=== PATIENT | male | born 1955 | race Caucasian/White ===

== ENCOUNTER → 2024-03-30 | Outpatient (CLI) | payer MEDICARE, SELFPAY ==
[2024-03-30 13:16] LABS: PSA,Total - Annual Screen 0.74 ng/mL (0.00-4.00)
== END | disposition home or self-care (01) ==
PROVIDERS: PCP Student in an Organized Health Care Education/Training Program; Referring Provider Urology; Visit Provider Urology
DX: Z12.5 Encounter for screening for malignant neoplasm of prostate (principal)
CPT/HCPCS: 36415; 84153; G0103

== ENCOUNTER 2024-09-22 05:36 | Day surgery (SDC) | payer MEDICARE, SELFPAY ==
[2024-09-22] VITALS (14 sets, daily range): BP systolic 113–140; BP diastolic 64–86; PULSE 81–97; RESP 16–20; TEMP 36.3–36.8; O2SAT 87–97; BMI 34.1; BMI 34.5
--- OUTSIDE RECORDS SUMMARY | 2024-09-22 05:39 | XMS RPT_ITS | CCD ---
Author Organization [facility] Care Team Providers Care Jewel Bearing Driller Name Role Phone Unavailable Primary Care Provider UnavailJasper Diaz MD Primary Care Provider SALLY DIAZ Referring Unavailable SALLY DIAZ Attending Unavailable JASPER AGUILAR Primary Care Unavailable SALLY DIAZ Referring Unavailable SALLY DIAZ Attending Unavailable JASPER AGUILAR Primary Care Unavailable SALLY DIAZ Attending Unavailable SALLY DIAZ Referring Unavailable SALLY DIAZ Attending Unavailable JASPER AGUILAR Referring Unavailable JASPER AGUILAR Primary Care Unavailable JASPER AGUILAR MD Admitting Unavailable JASPER AGUILAR MD Attending Unavailable JASPER AGUILAR MD Primary Care Unavailable JASPER AGUILAR MD Admitting Unavailable JASPER AGUILAR MD Attending Unavailable JASPER AGUILAR MD Primary Care Unavailable JASPER AGUILAR MD Admitting Unavailable JASPER AGUILAR MD Attending Unavailable JASPER AGUILAR MD Primary Care Unavailable JOHNIE CRESPO Consulting Unavailable PROVIDER, UNKNOWN Consulting Unavailable PROVIDER, UNKNOWN Consulting Unavailable PROVIDER, UNKNOWN Consulting Unavailable JASPER AGUILAR MD Admitting Unavailable JASPER AGUILAR MD Attending Unavailable JASPER AGUILAR MD Primary Care Unavailable JASPER AGUILAR MD Admitting Unavailable JASPER AGUILAR MD Attending Unavailable JASPER AGUILAR MD Primary Care Unavailable JASPER AGUILAR MD Admitting Unavailable JASPER AGUILAR MD Attending Unavailable JASPER AGUILAR MD Primary Care Unavailable JASPER AGUILAR MD Consulting Unavailable PROVIDER, UNKNOWN Consulting Unavailable PROVIDER, UNKNOWN Consulting Unavailable LOUIS IRENE Admitting Unavailable LOUIS IRENE Attending Unavailable LOUIS IRENE Primary Care Unavailable JASPER AGUILAR MD Consulting Unavailable PROVIDER, UNKNOWN Consulting Unavailable PROVIDER, UNKNOWN Consulting Unavailable Allergies Allergy Classification Reported Allergen(s) Allergy Type Date of Onset Reaction(s) Facility (7 sources) traMADol Drug Allergy 2 Mental Status Change [facility] (1 source) traMADol Drug Allergy [facility] Repository Medications Current Medications Medication Drug Class(es) Dates Sig (Normalized) Sig (Original) acetaminophen 325 mg / HYDROcodone bitartrate 5 mg oral tablet (1 source) Opioid Agonist Start: 05-27-2022 End: 05-27-2022 take 1 tablet by mouth once HYDROcodone-acet aminophen (NORCO) 5-325 mg per tablet Indications: pain Take 1 tablet by mouth one time only for 1 dose. Take 90 minutes prior to MRI. Do not drive while taking medication Do not start before May 27, 2022. 1 tablet 0 05/27/2022 05/27/2022 Active Comment on above: Take 1 tablet by nando one time only for 1 dose. Take 90 minutes prior to MRI. Do not drive while taking medication Do not start before May 27, 2022. [id number] actuat albuterol 0.09 mg/actuat metered dose inhaler (3 sources) beta2-Adrenergic Agonist take 1 puff(s) by inhalation every six hours as needed Albuterol 108 (90 Base) MCG/ACT Aero Soln inhaler Inhale 1 puff every 6 hours as needed for Shortness of Breath. 0 Active diazePAM 5 mg oral tablet (3 sources) Benzodiazepine Start: 05-27-2022 End: 05-31-2022 diazePAM (VALIUM) 5 mg tablet Indications: pre MRI Take 1 tablet 60 minutes prior to MRI, may repeat 1 tablet right before MRI/during if needed. Do not start before May 27, 2022. 2 tablet 0 05/27/2022 05/31/2022 Active Comment on above: Take 1 tablet 60 min utes prior to MRI, may repeat 1 tablet right before MRI/during if needed. Do not start before May 27, 2022. DULoxetine 60 mg delayed release oral capsule (3 sources) Serotonin and Norepinephrine Reuptake Inhibitor Start: 04-05-2023 take 1 capsule by mouth once daily DULoxetine [address] Particles capsule DR Take 1 capsule by mouth daily. 0 04/05/2023 Active lisinopril 20 mg oral tablet (8 sources) Angiotensin Converting Enzyme Inhibitor Start: 03-10-2023 take 1 tablet by mouth once daily Lisinopril 20 MG tablet Take 1 tablet by mouth daily. 0 03/10/2023 Active Start: 02-20-2022 take 1 tablet by nando th once daily lisinopril (ZESTRIL, PRINIVIL) 20 mg tablet Take 20 mg by mouth once daily. 0 02/20/2022 Active Comment on above: Take 20 mg by mouth once daily. predniSONE 20 mg oral tablet (8 sources) Start: 04-05-2023 take 1 tablet by mouth once daily predniSONE 20 MG tablet Take 1 tablet by mouth daily. 0 04/05/2023 Active Start: 05-03-2022 take 1 tablet by nando th once daily predniSONE (DELTASONE) 50 mg Indications: Spinal stenosis of cervical region Take 1 tablet by mouth once daily. 5 tablet 0 05/03/2022 Active Comment on above: Take 1 tablet by nando th once daily. Completed/Discontinued Medications Medication Drug Class(es) Dates Sig (Normalized) Sig (Original) cyclobenzaprine hydrochloride 10 mg oral tablet (4 sources) Muscle Relaxant Start: 04-03-2022 cyclobenzaprine (FLEXERIL) 10 mg tablet TAKE ONE TABLET EVERY TWELVE HOURS NEEDED 0 04/03/2022 Active Comment on above: TAKE ONE TABLET EVER Y TWELVE HOURS NEEDED LORazepam 1 mg oral tablet (4 sources) Benzodiazepine Start: 04-10-2022 LORazepam (ATIVAN) 1 mg tablet TAKE ONE TABLET BY MOUTH 30- 60 MINUTES prior TO procedure 0 04/10/2022 Active Comment on above: TAKE ONE TABLET BY OUT 30- 60 MINUTES prior TO procedure Problems Active Problems Problem Classification Problem Date Documented Date Episodic/Chronic Anxiety disorders (1 source) Claustrophobia; Translations: [Claustrophobia] Chronic Cardiac dysrhythmias (1 source) Palpitations; Translations: [Palpitations] Onset: 08-31-2024 Episodic Diabetes mellitus without complication (1 source) Impaired fasting glucose; Translations: [Impaired fasting glucose] Onset: 08-31-2024 Episodic Genitourinary symptoms and ill-defined conditions (1 source) Frequency of micturition; Translations: [Frequency of micturition] Onset: 08-31-2024 Episodic Other acquired deformities (2 sources) Unspecified kyphosis, cervical region; Translations: [Unspecified kyphosis, cervical region] Onset: 05-26-2023 Chronic Other acquired deformities (1 source) Cervical kyphosis; Translations: [Unspecified kyphosis, cervical region] 06-19-2023 Chronic Other acquired deformities (2 sources) Spondylolysis of cervical spine; Translations: [Spondylolysis, cervical region] 05-26-2023 Episodic Other acquired deformities (2 sources) Spondylolysis, cervical region; Translations: [Spondylolysis, cervical region] Onset: 05-26-2023 Episodic Other aftercare (2 sources) Encounter for follow-up examination after completed treatment for conditions other than malignant neoplasm; Translations: [Encounter for follow-up examination after completed treatment for conditions other than malignant neoplasm] Onset: 05-26-2023 Episodic Other nervous system disorders (6 sources) Cervical myelopathy; Translations: [Disease of spinal cord, unspecified] Onset: 05-03-2022 Chronic Other screening for suspected conditions (not mental disorders or infectious disease) (4 sources) Patient encounter status; Translations: [Encounter for screening for osteoporosis] Onset: 05-29-2022 05-29-2022 Episodic Spondylosis; intervertebral disc disorders; other back problems (7 sources) Spinal stenosis in cervical region; Translations: [Spinal stenosis, cervical region] Onset: 05-03-2022 Episodic Past or Other Problems Problem Classification Problem Date Documented Da te Episodic/Chronic Other aftercare (1 source) Other halfway (current) drug therapy; Translations: [Other person investigator (current) drug therapy] Onset: 02-16-2024 Episodic Results Test Name Value Interpretation Reference Range Facility HEMOGLOBIN A1C (POM)on 08-31 Glucose [Mass/Vol] 205.9 mg/dL High 0.0 - 0.0 [facility] Comment on above: Result Comment: BLDo HEMOGLOBIN A1C REFERENCE RANGESBLDo Suggested Diagnosis HbA1c(%) HbA1C (mmol/mol Diabetic >/=6.5 >/=48 Prediabetes 5.7 - 6.4 39 - 47 Normal <5.7 <39 Performed By: #### 2 [id number] #### [facility],[address] [place] [address] HbA1c (Bld) [Mass fraction] 8.8 % High 0.0 - 6.5 [facility] Comment on above: Performed By: #### 2 [id number] #### [facility],[address] [place] [address] BRAIN W/O CONTRASTon - CT BRAIN W/O CONTRAST [address] [address] Patient: LISE RAY Phone#: : 1955 Age: 69 Gender: M Pt. Type: ER Account: [id number] Location: [facility] Ordering: LOUSI IRENE Exam Date: 05/19/2024/10:32 Family Phys: Charge Code: [id number] Physician: Zavala Order #: [id number] Dose#: 52.7 mGy PROCEDURE: CT BRAIN WITHOUT CONTRAST COMPARISON: None. INDICATIONS: Trauma. TECHNIQUE: CT images were obtained without contrast material. All CT scans at this facility use dose modulation, iterative reconstruction, and/or weight based dosing when appropriate to reduce radiation dose to as low as reasonably achievable. IV CONTRAST: No IV contrast used,0ml TOTAL DOSE: CTDIvol(mGy) FINDINGS: CEREBRUM: No edema, hemorrhage, mass. Global atrophy. Deep cerebral white matter hypodensity in the right frontal lobe, age indeterminate. CEREBELLUM: No edema, hemorrhage, mass. Global atrophy. BRAINSTEM: No edema, hemorrhage, mass, or inappropriate atrophy. CSF SPACES: Ventricles, cisterns, and sulci are appropriate for age. No hydrocephalus, subarachnoid hemorrhage, or mass. SKULL: No mass or other significant visible lesion. SINUSES: Right maxillary sinus diffuse mucosal thickening. Mucosal thickening in the left sphenoid sinus. ORBITS: Limited views are unremarkable. OTHER: Atherosclerotic calcifications of the cavernous carotid arteries. Right parietal scalp lipoma. CONCLUSION: 1. No appreciable acute intracranial abnormality. 2. Deep cerebral white matter hypodensity in the right frontal lobe, most often due to small vessel ischemic disease. 3. Sinus mucosal disease Continued Report - Page 2 of 2 Patient: LISE RAY Phone#: : 1955 Age: 69 Gender: M Pt. Type: ER Account: [id number] Location: 052 Ordering: LOUIS IRENE Exam Date: 05/19/2024/10:32 Family Phys: Charge Code: [id number] Physician: Zavala Order #: [id number] Dose#: 52.7 mGy Dictated by: Raven Guardado MD on 05/19/2024 at 11:04 Approved by: Raven Guardado MD on 05/19/2024 at 11:12 Normal [facility] CT CERVICAL W/O CONTRASTon 0 05-19-2024 CT CERVICAL W/O CONTRAST [place] [address] Patient: LISE RAY Phone#: : 1955 Age: 69 Gender: M Pt. Type: ER Account: [id number] Location: 052 Ordering: LOUIS IRENE Exam Date: 05/19/2024/10:32 Family Phys: Charge Code: [id number] Physician: Zavala Order #: [id number] Dose#: 13.6 mGy PROCEDURE: CT CERVICAL WITHOUT CONTRAST COMPARISON: [facility], CT, CERVICAL W/O CON, 09/03/2021, 10:56. INDICATIONS: Trauma. TECHNIQUE: Multi-planar CT images were created without intravenous contrast. All CT scans at this facility use dose modulation, iterative reconstruction, and/or weight-based dosing when appropriate to reduce radiation dose to as low as reasonably achievable. IV CONTRAST: No IV contrast used,0 ml TOTAL DOSE: 13.6 CTDIvol(mGy) FINDINGS: CRANIOCERVICAL AREA: Normal foramen magnum with no Chiari malformation. PARASPINAL AREA: Normal with no visible mass. BONES: Vertebral bodies are maintained in height. There is reversal the normal cervical lordosis, this may be positional or due to muscle spasm. The dens is intact. The lateral masses are symmetric. OTHER: Multiple maxillary and mandibular bilateral dental caries. Multiple maxillary and mandibular periapical lucencies. CERVICAL DISC LEVELS: C2-C3: No significant disc/facet abnormality, spinal stenosis, or foraminal stenosis. C3-C4: Uncovertebral hypertrophy contributes to mild right neural foraminal narrowing C4-C5: Disc height loss and uncovertebral hypertrophy contributes to at least mild bilateral foraminal narrowing C5-C6: Disc height loss and uncovertebral hypertrophy contributes to moderate right and mild left neural foraminal narrowing C6-C7: Disc height loss and uncovertebral hypertrophy contributes to moderate bilateral foraminal narrowing C7-T1: No significant disc/facet abnormality, spinal stenosis, or foraminal stenosis. CONCLUSION: Continued Report - Page 2 of 2 Patient: LISE RAY Phone#: : 1955 Age: 69 Gender: M Pt. Type: ER Account: [id number] Location: 052 Ordering: LOUIS IRENE Exam Date: 05/19/2024/10:32 Family Phys: Charge Code: [id number] Physician: Zavala Order #: [id number] Dose#: 13.6 mGy 1. No acute osseous abnormality. 2. Multilevel degenerative changes resulting in varying degrees of foraminal narrowing. Dictated by: Raven Guardado MD on 05/19/2024 at 11:13 Approved by: Raven Guardado MD on 05/19/2024 at 11:20 Normal [facility] KNEE COMPLETE RT MIN 4 VIEWS on 05-19-2024 KNEE COMPLETE RT MIN 4 VIEWS [place] [address] Patient: LISE RAY Phone#: : 1955 Age: 69 Gender: M Pt. Type: ER Account: [id number] Location: 052 Ordering: LOUIS MARIA VICTORIA Exam Date: 05/19/2024/10:45 Family Phys: Charge Code: [id number] Physician: Zavala Order #: [id number] Dose#: PROCEDURE: X-RAY KNEE RT COMPLETE 4 VIEWS COMPARISON: None. INDICATIONS: Trauma. FINDINGS: BONES: Right tibial proximal medullary silvia and single screw in the tibial plateau present. No perihardware lucency to suggest fracture. Distal femur appears intact. There is spurring of the undersurface of the patella. There is lateral patellar tilt measuring 3.5. There is narrowing of the lateral patellofemoral joint space. There is mild medial and lateral compartment joint space narrowing. SOFT TISSUES: There is thickening of the quadriceps tendon shadow near the patellar insertion. EFFUSION: None visible. OTHER: Negative. CONCLUSION: 1. No acute osseous abnormality 2. Thickening of the quadriceps tendon shadow near the patellar insertion. Correlate for possible quadriceps tendon injury. 3. Tricompartmental osteoarthritis. Dictated by: Raven Guardado MD on 05/19/2024 at 11:20 Approved by: Raven Guardado MD on 05/19/2024 at 11:23 Normal [facility] CBC (NO DIFF)on 02-16-2024 CBC panel Auto (Bld) Normal [facility] Comment on above: Result Comment: CBC( WITHOUT DIFFERENTIAL) Performed By: #### 2 25829 #### [place] [address] Erythrocyte distribution width (RBC) [Ratio] 13.3 % Normal 12.0 - 15.6 [facility] Comment on above: Performed By: #### 2 00230 #### [address] [address] Hematocrit (Bld) [Volume fraction] 47.7 % Normal 40.0 - 52.0 [facility] Comment on above: Performed By: #### 2 92945 #### [address] [address] Hemoglobin (Bld) [Mass/Vol] 16.0 g/dL Normal 13.0 - 17.5 [facility] Comment on above: Performed By: #### 2 52384 #### [facility],[address] [place] [address] MCH (RBC) [Entitic mass] 30 pg Normal 27 - 33 [facility] Comment on above: Performed By: #### 2 44527 #### [address] [address] MCHC 34 X10 3 Normal 32 - 36 [facility] Comment on above: Performed By: #### 2 48981 #### [facility],[address] [place] [address] MCV (RBC) [Entitic vol] 90 fL Normal 81 - 98 [facility] Comment on above: Performed By: #### 2 74579 #### [facility],[address] [place] [address] PLATELET 264 x10EE3/UL Normal 150 - 450 [facility] Comment on above: Performed By: #### 2 41525 #### [facility],[address] [place] [address] Platelet mean volume (Bld) [Entitic vol] 8.3 fL Normal 6.4 - 10.5 [facility] Comment on above: Performed By: #### 2 39879 #### [facility],[address] [place], [place] [id number] RBC 5.30 x 10EE6/UL Normal 4.50 - 6.00 [facility] Comment on above: Performed By: #### 2 76411 #### [facility],[address] [place] [address] WBC 9.4 x 10EE3/UL Normal 4.5 - 10.[address] [facility] Comment on above: Performed By: #### 2 13639 #### [facility],[address] [place] [address]807 CMP with eGFRon 02-16-2024 AGE 68 years Normal [facility] Comment on above: Performed By: #### 2 95383 #### [facility],[address] [place] [address]125 Albumin [Mass/Vol] 3.9 g/dL Normal 3.4 - 5.0 [facility] Comment on above: Performed By: #### 2 27007 #### [facility],[address] [place] [address] Albumin/Globulin [Mass ratio] 1.0 {ratio} Normal 0.9 - 1.6 [facility] Comment on above: Performed By: #### 2 38388 #### [facility],[address] [place] [address] ALK PHOS 81 U/L Normal 46 - 116 [facility] Comment on above: Performed By: #### 2 39133 #### [facility],[address] [place] [address] ALT [Catalytic activity/Vol] 47 U/L Normal 16 - 63 [facility] Comment on above: Performed By: #### 2 53315 #### [facility],[address] [place] [address] Anion gap [Moles/Vol] 14 mmol/L Normal 10 - 20 [facility] Comment on above: Performed By: #### 2 17857 #### [facility],[address] [place], [place] [id number] AST [Catalytic activity/Vol] 28 U/L Normal 15 - 37 [facility] Comment on above: Performed By: #### 2 79093 #### [facility],[address] [place] [address] B/C RATIO 12 ratio Normal 0 - 30 [facility] Comment on above: Performed By: #### 2 40171 #### [facility],[address] [place] [address] Bilirubin [Mass/Vol] 0.6 mg/dL Normal 0.2 - 1.0 [facility] Comment on above: Performed By: #### 2 07838 #### [facility],[address] [place] [address] Calcium [Mass/Vol] 8.9 mg/dL Normal 8.5 - 10.1 [facility] Comment on above: Performed By: #### 2 49586 #### [facility],[address] [place] [address]242 Chloride [Moles/Vol] 99 mmol/L Normal 98 - 107 [facility] Comment on above: Performed By: #### 2 05334 #### [facility],[address] [place] [address] CMP with eGFR Normal [facility] Comment on above: Result Comment: COMP REHENSIVE METABOLIC PANEL Performed By: #### 2 90363 #### [facility],[address] [place] [address] CO2 [Moles/Vol] 27.9 mmol/L Normal 21.0 - 32.0 [facility] Comment on above: Performed By: #### 2 42391 #### [facility],[address] [place] [address] Creatinine [Mass/Vol] 0.86 mg/dL Normal 0.70 - 1.30 [facility] Comment on above: Performed By: #### 2 73707 #### [facility],[address] [place] [address] GFR/1.73 sq M.predicted among non-blacks MDRD (S/P/Bld) [Vol rate/Area] mL/min/{1.73_m2} Normal 60 - 999 [facility] Comment on above: Performed By: #### 2 23529 #### [facility],[address] [place] [address] Result Comment: ACCO RDING TO THE NATIONAL KIDNEY DISEASE EDUCATION PROGRAM(NKDE), A NORMAL eGFR IS A VALUE GREATER THAN OR EQUAL TO 60 ML/MIN/1.73 SQ METERS. CHRONIC KIDNEY DISEASE: <60mL/MIN/1.73 SQ METERS KIDNEY FAILURE: <15mL/MIN/1.73 SQ METERS THIS TEST SHOULD ONLY BE USED FOR PATIENTS 18 YEARS OF AGE AND OLDER. Globulin (S) [Mass/Vol] 3.9 g/dL High 1.5 - 3.8 [facility] Comment on above: Performed By: #### 2 49295 #### [facility],[address],[place] [address] Glucose [Mass/Vol] 124 mg/dL High 74 - 106 [facility] Comment on above: Performed By: #### 2 37596 #### [facility],[address] [place] [address] Potassium [Moles/Vol] 4.1 mmol/L Normal 3.5 - 5.1 [facility] Comment on above: Performed By: #### 2 50054 #### [facility],[address] [place] [address] Protein [Mass/Vol] 7.8 g/dL Normal 6.4 - 8.2 [facility] Comment on above: Performed By: #### 2 24776 #### [facility],[address] [place] [address]31 Sodium [Moles/Vol] 137 mmol/L Normal 136 - 145 [facility] Comment on above: Performed By: #### 2 98287 #### [facility],[address] [place] [address] Urea nitrogen [Mass/Vol] 10 mg/dL Normal 7 - 18 [facility] Comment on above: Performed By: #### 2 74928 #### [facility],[address] [place] [address] LIPID PROFILEon 02-16-2024 Cholesterol [Mass/Vol] 110 mg/dL Normal 0 - 240 [facility] Comment on above: Performed By: #### 2 40356 #### [facility],[address] [place] [address] Cholesterol in HDL [Mass/Vol] 44 mg/dL Normal 40 - 60 [facility] Comment on above: Performed By: #### 2 79143 #### [facility],[address] [place] [address]995 Cholesterol in LDL [Mass/Vol] 43 mg/dL Normal 0 - 129 [facility] Comment on above: Performed By: #### 2 02217 #### [facility],[address] [place] [address] 63847 Cholesterol.total/Chol esterol in HDL [Mass ratio] 2.5 {ratio} Normal 0.0 - 5.0 [facility] Comment on above: Performed By: #### 2 01388 #### [facility],[address] [place] [address] Lipid 1996 panel Normal [facility] Comment on above: Result Comment: LIPI D PROFILE Performed By: #### 2 35923 #### [facility],[address] [place] [address] Triglyceride [Mass/Vol] 113 mg/dL Normal 0 - 150 [facility] Comment on above: Performed By: #### 2 04947 #### [facility],[address] [place] [address] 06140 TSHon 02-16-2024 TSH Qn 2.84 m[IU]/L Normal 0.35 - 3.74 [facility] Comment on above: Performed By: #### 2 82680 #### [facility],[address] [place] [address]341 URINALYSISon 02-16-2024 Bilirubin Ql (U) Negative Normal NORMAL: NEGATIVE [facility] Comment on above: Performed By: #### 2 57279 #### [facility],[address] [place] [address] 60394 Clarity (U) clear Normal NORMAL: CLEAR [facility] Comment on above: Performed By: #### 2 20255 #### [facility],[address] [place] [address]61 Color (U) yellow Normal NORMAL: YELLOW [facility] Comment on above: Performed By: #### 2 94526 #### [facility],[address] [place] [address]006 Glucose Ql (U) NORM Normal NORMAL: NORMAL [facility] Comment on above: Performed By: #### [id number] #### [facility],[address] [place] [id number] Hemoglobin Ql (U) Negative Normal NORMAL: NEGATIVE [facility] Comment on above: Performed By: #### 2 [id number] #### [facility],[address] [place] [address] [id number] Ketone Negative Normal NORMAL: NEGATIVE [facility] Comment on above: Performed By: #### 2 [id number] #### [facility],[address] [place] [address] 17036 Leukocytes Negative Normal NORMAL: NEGATIVE [facility] Comment on above: Performed By: #### 2 [id number] #### [facility],[address] [place], [place] [id number] Nitrite Ql (U) Negative Normal NORMAL: NEGATIVE [facility] Comment on above: Performed By: #### 2 [id number] #### [facility],[address] [place] [address] pH (U) 6.5 [pH] Normal NORMAL: 5.0-8.0 [facility] Comment on above: Performed By: #### 2 [id number] #### [facility],[address] [place] [address] Protein Ql (U) 15 Abnormal NORMAL: NEGATIVE [facility] Comment on above: Performed By: #### 2 [id number] #### [facility],[address] [place] [address] Sp Antoine 1.010 Normal NORMAL: 1.010-1.030 [facility] Comment on above: Performed By: #### 2 [id number] #### [facility],[address] [place] [address] Specimen Type UNSPECIFIED Normal [facility] Comment on above: Performed By: #### 2 [id number] #### [facility],[address] [place] [address] Urinalysis dipstick W Reflex Microscopic panel (U) NOT INDICATED Normal [facility] Comment on above: Performed By: #### 2 [id number] #### [facility],[address] [place] [address] Urobilinog NORM Normal NORMAL: NORMAL [facility] Comment on above: Performed By: #### 2 [id number] #### [facility],[address] [place] [address] No Panel Informationon 05-26 IMPRESSION: No acute abnormality. Reversal of the cervical lordosis without instability on flexion or extension. 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 Levoscoliosis of the thoracic spine. OLOGY EXAM: XR SPINE CERVICAL 4 VIEWS, XR SPINE SCOLIOSIS 2/3 VIEWS, 05/26/2023 10:15 AM (accession [id number]), 05/26/2023 10:16 AM (accession [id number]) COMPARISON: Cervical spine radiographs May 03, 2022 CLINICAL HISTORY: Ap/lat/flex/ex;, eval spondylosis M43.02:Cervical spondylolysis FINDINGS: 8 image scoliosis survey: 12 rib-bearing thoracic vertebral bodies and 5 lumbar vertebral bodies. No significant pelvic tilt identified. Levoscoliosis of the thoracic spine measures 16 degrees. Reversal of the normal cervical curvature on the lateral view. Degenerative disc disease of the lower lumbar spine. 4 images of the cervical spine including flexion and extension: Reversal of the normal cervical curvature. 7 cervical type vertebral bodies. Degenerative disc disease most severe within the lower cervical spine manifested by disc space narrowing primarily C5-6 and C6-7. No instability with flexion or extension. Prevertebral soft tissues are normal. RADIOLOGY Guerrero Waters MD - 05/26/2023 EXAM: XR SPINE CERVICAL 4 VIEWS, XR SPINE SCOLIOSIS 2/3 VIEWS, 05/26/2023 10:15 AM (accession [id number]), 05/26/2023 10:16 AM (accession [id number]) COMPARISON: Cervical spine radiographs May 03, 2022 CLINICAL HISTORY: Ap/lat/flex/ex;, eval spondylosis M43.02:Cervical spondylolysis FINDINGS: 8 image scoliosis survey: 12 rib-bearing thoracic vertebral bodies and 5 lumbar vertebral bodies. No significant pelvic tilt identified. Levoscoliosis of the thoracic spine measures 16 degrees. Reversal of the normal cervical curvature on the lateral view. Degenerative disc disease of the lower lumbar spine. 4 images of the cervical spine including flexion and extension: Reversal of the normal cervical curvature. 7 cervical type vertebral bodies. Degenerative disc disease most severe within the lower cervical spine manifested by disc space narrowing primarily C5-6 and C6-7. No instability with flexion or extension. Prevertebral soft tissues are normal. IMPRESSION IMPRESSION: No acute abnormality. Reversal of the cervical lordosis without instability on flexion or extension. 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 Levoscoliosis of the thoracic spine. [facility] No Panel InformationOrdered By: Guerrero Waters on 05-26-2023 [facility] Work Phone: XR Cervical spine 4 Viewson 05-26-2023 Radiology Study observation (narrative) [facility] XR SPINE CERVICAL 4 VIEWSon 05-26-2023 XR SPINE CERVICAL 4 VIEWS EXAM: XR SPINE CERVICAL 4 VIEWS, XR SPINE SCOLIOSIS 2/3 VIEWS, 05/26/2023 10:15 AM (accession [id number]), 05/26/2023 10:16 AM (accession [id number]) COMPARISON: Cervical spine radiographs May 03, 2022 CLINICAL HISTORY: Ap/lat/flex/ex;, eval spondylosis M43.02:Cervical spondylolysis FINDINGS: 8 image scoliosis survey: 12 rib-bearing thoracic vertebral bodies and 5 lumbar vertebral bodies. No significant pelvic tilt identified. Levoscoliosis of the thoracic spine measures 16 degrees. Reversal of the normal cervical curvature on the lateral view. Degenerative disc disease of the lower lumbar spine. 4 images of the cervical spine including flexion and extension: Reversal of the normal cervical curvature. 7 cervical type vertebral bodies. Degenerative disc disease most severe within the lower cervical spine manifested by disc space narrowing primarily C5-6 and C6-7. No instability with flexion or extension. Prevertebral soft tissues are normal. IMPRESSION: No acute abnormality. Reversal of the cervical lordosis without instability on flexion or extension. 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 Levoscoliosis of the thoracic spine. Normal [facility] XR SPINE SCOLIOSIS 2/3 VIEWS on 05-26-2023 XR SPINE SCOLIOSIS 2/3 VIEWS EXAM: XR SPINE CERVICAL 4 VIEWS, XR SPINE SCOLIOSIS 2/3 VIEWS, 05/26/2023 10:15 AM (accession [id number]), 05/26/2023 10:16 AM (accession [id number]) COMPARISON: Cervical spine radiographs May 03, 2022 CLINICAL HISTORY: Ap/lat/flex/ex;, eval spondylosis M43.02:Cervical spondylolysis FINDINGS: 8 image scoliosis survey: 12 rib-bearing thoracic vertebral bodies and 5 lumbar vertebral bodies. No significant pelvic tilt identified. Levoscoliosis of the thoracic spine measures 16 degrees. Reversal of the normal cervical curvature on the lateral view. Degenerative disc disease of the lower lumbar spine. 4 images of the cervical spine including flexion and extension: Reversal of the normal cervical curvature. 7 cervical type vertebral bodies. Degenerative disc disease most severe within the lower cervical spine manifested by disc space narrowing primarily C5-6 and C6-7. No instability with flexion or extension. Prevertebral soft tissues are normal. IMPRESSION: No acute abnormality. Reversal of the cervical lordosis without instability on flexion or extension. 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 Levoscoliosis of the thoracic spine. Normal [facility] XR Thoracic and lumbar spine Views for scoliosison 05-26-2023 Radiology Study observation (narrative) [facility] Johanny 06-13-2022 [facility]) REAGAN RAY ([id number]) 1955 M Date Time Provider Department 06/13/22 GILBERT COOK [facility] During your visit today, we recorded the following information about you: Jose Luis Walton RN 06/13/2022 10:55 AM Signed Called patient to check on the status of his dex scan and labs that were to be obtained prior to up coming apointment. Patient became very aggressive yelling. He stated we have taken enough of his money and he's not coming up here anymore . He stated he has been given the run around and didn't like how he was treated. I apologized and patient stated he wanted to cancel his appointment and everything we ordered at this time and hung up. 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 - predniSONE (DELTASONE) 50 mg Take 1 tablet by mouth once daily. Problem List As Of Date 06/13/2022 Noted Resolved Myelopathy of cervical spinal cord with cervica*05/03/2022 Spinal stenosis of cervical region [M48.02] 05/03/2022 Encounter for screening for osteoporosis [Z13.8*05/29/2022 Encounter Status:Closed by JOSE LUIS WALTON on 06/13/22 [facility] Johanny 06-07-2022 CNPN Telephone ([facility]) REAGAN RAY ([id number]) 1955 M Date Time Provider Department 06/07/22 GILBERT COOK During your visit today, we recorded the following information about you: Micheline Ordoñez 06/07/2022 2:33 PM Signed Patient called in today, upon answering patient was very upset (yelling most of the call) as to why no one has called him about scheduling his DEXA scan and blood work for asaf. I let the patient know that I have tried to reach out to him on a couple of occasions to let him know his dates and times since he does not have MyChart. I told him that the number we had on file I left a couple of voicemails on but I didn't believe that it was his number since the voice mail says Cara. He asked what number we have and I told him [phone]. He got really upset and yelled NO NO NO THAT'S NOT IT, ITS [phone]. I said thank you and I will change it in our system And I will call and get those appts that he missed rescheduled, he said is someone going to call me this time. I said I sure will and he continued to yell and get more and more upset saying that nobody ever calls him back, I told him that I tried but he did not leave a call back number in any of his voice mails that he has left. He yelled and said well you have it now. I asked him to stop yelling at me and that I was only trying to help him, he then yelled about getting the run around for 9 months, I said that I am sorry but I havent been here that long and I am only trying to help him but I need you to please stop yelling at me, and he said either you are going to do the surgery or you arent, im not driving all over from one surgeon to another, I told him if he doesn't want to go to the appointments then he can cancel them and he yelled that he would and maybe he would just have accupuncture instead and hung up on me. Allergies As of Date: 06/07/2022 Noted Allergy Reaction TRAMADOL 05/03/2022 1 - Mental Status Change Comments: hallucinations Date Reviewed: 05/29/2022 Reviewed by: Aishwarya Nayak Ma - Fully Assessed Reason for Visit: Appointment [186] Prescriptions as of 06/07/2022 - cyclobenzaprine (FLEXERIL) 10 mg tablet TAKE ONE TABLET EVERY TWELVE HOURS NEEDED - LORazepam (ATIVAN) 1 mg tablet TAKE ONE TABLET BY MOUTH 30- 60 MINUTES prior TO procedure - lisinopril (ZESTRIL, PRINIVIL) 20 mg tablet Take 20 mg by mouth once daily. - predniSONE (DELTASONE) 50 mg Take 1 tablet by mouth once daily. 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*05/03/2022 Spinal stenosis of cervical region [M48.02] 05/03/2022 Encounter for screening for osteoporosis [Z13.8*05/29/2022 Encounter Status:Closed by MICHELINE ORDOÑEZ on 06/07/22 [facility] 05-31-2022 [facility] REAGAN RAY ([id number]) 1955 M Date Time Provider Department 05/31/22 GILBERT COOK [facility] During your visit today, we recorded the following information about you: Micheline Ordoñez 05/31/2022 4:05 PM Signed Called patient on 05/30/22 at [phone], the number that is on his profile to let him know that I got his DXA scan scheduled and that he can have his vitamin D checked at the lab in [place] which is closer to his home. I left a message yesterday on the voice mail of an Cara (whos number this appears to be) did not disclose patients name other than just first name and letting him know the date and time of his appt just in case it was not the right number. Patient called and left a voicemail for me that he was still waiting on a call from us to let him know when his appt was scheduled for but did not leave a contact number on the message so again I called the same number and left a message saying that if this is not the correct number for Reagan to please let me know and left my number and ext. On the vm. Allergies As of Date: 05/31/2022 Noted Allergy Reaction TRAMADOL 05/03/2022 1 - Mental Status Change Comments: hallucinations Date Reviewed: 05/29/2022 Reviewed by: Aishwarya Nayak Ma - Fully Assessed Reason for Visit: Future Appointment [256] Prescriptions as of 05/31/2022 - cyclobenzaprine (FLEXERIL) 10 mg tablet TAKE ONE TABLET EVERY TWELVE HOURS NEEDED - LORazepam (ATIVAN) 1 mg tablet TAKE ONE TABLET BY MOUTH 30- 60 MINUTES prior TO procedure - lisinopril (ZESTRIL, PRINIVIL) 20 mg tablet Take 20 mg by mouth once daily. - predniSONE (DELTASONE) 50 mg Take 1 tablet by mouth once daily. - diazePAM (VALIUM) 5 mg tablet Take 1 tablet 60 minutes prior to MRI, may repeat 1 tablet right before MRI/during if needed. Do not start before May 27, 2022. 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 CNOVon 05-29-2022 CNOV Office Visit ([facility]) REAGAN RAY ([id number]) 1955 M Date Time Provider Department 05/29/22 1:00 PM GILBERT COOK AGOJo Ann During your visit today, we recorded the following information about you: Temperature Pulse Blood pressure Weight 97.5 degrees 102/minute 136/79 91.4 kg Height 1.778 m Gilbert Cook MD, MD 05/29/2022 2:49 PM Signed Gilbert Cook M.D. ORTHOPEDIC SPINE CONSULT NOTE Date of visit: May 29, 2022 Patient Name: Mr.Rick Dixie Ray Date of : 1955 Current Age: [age] year old Sex: male PCP: No primary care provider on file. Chief Complaint:Patient presents with: New Patient HPI Mr.Rick Dixie Ray was seen by Ning Shanks APRN. CNP on 05/03/2022 with complaints of neck pain that radiated to ulnar aspect of bilateral upper extremities. He had participated in multiple modalities of conservative treatment including physical therapy and pain management in [place], no significant symptom relief. He was asked to obtain Xray and MRI of cervical spine then follow-up afterwards, prompting his visit today. Today he reports his symptoms are unchanged since he saw Ning. He notes cervical pain that is worse on the left. He notes his pain radiates down his arms bilaterally through the ulnar aspect. He notes numbness, tingling, weakness and dropping items. He has failed all conservative treatment thus far. +smoker Pain: neck pain Duration of Symptoms: 9 months, without known incident Radiation: ulnar aspect of bilateral upper extremities Numbness / tingling: Present in bilateral hands, all 10 fingers Weakness:??Denies Dexterity:? Endorses-ongoing for 9 months Imbalance:? Endorses-ongoing for 9 months Bowel/bladder dysfunction: ?Denies PREVIOUS CONSERVATIVE TREATMENT: 1) Medication: Tylenol and NSAIDs, Prednisone, [place], Flexeril 2) Physical therapy: Participated multiple times in the past, no symptom relief. 3) Pain Management: [place] [facility]- Dr. Sena 4) Injections: Per patient has had multiple injections with pain management, unable to indicate location of injections. 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 (Hcc) Spinal Stenosis of Cervical Region PAST MEDICAL HISTORY Diagnosis Date - COPD (chronic obstructive pulmonary disease) (HCC) - Emphysema/COPD (HCC) - Hernia - Hypertension - Sleep apnea PAST SURGICAL HISTORY Procedure Laterality Date - HAND SURGERY HX Right 12/28/2010 CTR - [email or web address] - LEG SURGERY HX Right 08/2012 [facility] - [facility] @ [facility] FAMILY HISTORY Problem Relation Age of Onset - Arthritis Mother - Diabetes Mother - Cancer Father - Hypertension Father - other (anemia) Brother - Heart disease Brother Social History Tobacco Use - Smoking status: Current Every Day Smoker Types: Cigarettes - Smokeless tobacco: Never Used Substance Use Topics - Alcohol use: Yes Comment: occasionally - Drug use: Never ALLERGIES Allergen Reactions - Tramadol Mental Status Change hallucinations MEDICATIONS: cyclobenzaprine (FLEXERIL) 10 mg tablet TAKE ONE TABLET EVERY TWELVE HOURS NEEDED lisinopril (ZESTRIL, PRINIVIL) 20 mg tablet Take 20 mg by mouth once daily. predniSONE (DELTASONE) 50 mg Take 1 tablet by mouth once daily. LORazepam (ATIVAN) 1 mg tablet TAKE ONE TABLET BY MOUTH 30- 60 MINUTES prior TO procedure diazePAM (VALIUM) 5 mg tablet Take 1 tablet 60 minutes prior to MRI, may repeat 1 tablet right before MRI/during if needed. Do not start before May 27, 2022. PROMIS Score Percentiles Percentiles provide an indication of how the patient's score ranks in relation to the general population. Higher percentile rankings indicate better function/quality of life. 50th percentile is the average of the general population and indicates half of respondents had a worse score. REVIEW OF SYSTEMS: Review of Systems Constitutional: Negative for diaphoresis, fatigue and fever. HENT: Negative for congestion, sinus pressure and sore throat. Eyes: Negative for discharge and itching. Respiratory: Negative for cough, chest tightness and shortness of breath. Cardiovascular: Negative for chest pain, palpitations and leg swelling. Gastrointestinal: Negative for constipation, diarrhea, nausea and vomiting. Endocrine: Negative for cold intolerance and heat intolerance. Genitourinary: Negative for difficulty urinat (more content not included)... Normal [facility] MRI CERVICAL SPINE WO IVCONo n 05-29-2022 MRI CERVICAL SPINE WO IVCON * * *Final Report* * * DATE OF EXAM: May 29 2022 11:55AM A1M 0297 - MRI CERVICAL SPINE WO IVCON / PROCEDURE REASON: Spinal stenosis of cervical region * * * * Physician Interpretation * * * * HISTORY: 67-year-old, spinal stenosis. TECHNIQUE: Routine MR imaging through the cervical spine is performed without IV contrast administration. There are no prior MRIs for comparison. This study is correlated with plain radiographs 05/03/2022. RESULT: Counting reference: Craniocervical junction. Anatomic Variants: None. Sagittal images reveal reversal of the normal cervical lordosis at C4/C5. There is mild chronic anterior loss of height of C5 and C6, likely on a degenerative basis. There is no bone marrow edema nor bony retropulsion. There is narrowing of the disc spaces at C4/C5 through C6/C7, inclusive. There is normal alignment of the cervical vertebral bodies. There is no bone marrow edema. There is no abnormal spinal cord signal intensity. There are no prevertebral masses. Axial images at C2/C3 reveal a minimally bulging disc without significant compressive features. The neural foramina are patent. At C3/C4, a bulging disc and central disc protrusion contact, but do not compress, the spinal cord. There is minimal left and mild to moderate right foraminal narrowing due to facet and uncovertebral joint hypertrophy. At C4/C5, there is mild central stenosis due to a bulging disc. There is minimal flattening of the left ventral spinal cord due to a small left ventral disc protrusion. There is moderate neural foraminal narrowing due to facet and uncovertebral joint hypertrophy. At C5/C6, there is mild central stenosis due to a bulging disc. There is no cord compression. There is mild to moderate left and mildly severe right foraminal narrowing due to facet and uncovertebral joint hypertrophy. At C6/C7, there is a mildly bulging disc. There is no spinal stenosis nor cord compression. There is mild right and moderate left foraminal narrowing due to facet and uncovertebral joint hypertrophy and extension of disc osteophyte complexes into the neural foramina. At C7/T1, there is no compression of the thecal sac nor the spinal cord. There is mild neural foraminal narrowing due to facet and uncovertebral joint hypertrophy. IMPRESSION: 1. Reversal of the normal cervical lordosis. 2. Multilevel spondylosis with bulging disks and disc protrusions causing central stenosis and minimal cord flattening as noted above. 3. No abnormal spinal cord signal intensity. 4. Neural foraminal narrowing due to facet and uncovertebral joint hypertrophy as noted above. Clinical Account Executive: [facility] Transcribe Date/Time: May 31 2022 8:46A Dictated by : CLARK HUNT MD This examination was interpreted and the report reviewed and electronically signed by: CLARK HUNT MD on May 31 2022 8:49AM EST [id number] CN Normal [facility] XR CERVICAL 2V AP/LATon 06-0 XR CERVICAL 2V AP/LAT * * *Final Report* * * DATE OF EXAM: May 03 2022 10:32AM A1X 5308 - XR CERVICAL 2V AP/LAT / PROCEDURE REASON: Spinal stenosis of cervical region * * * * Physician Interpretation * * * * EXAM: CERVICAL SPINE, 2 VIEWS CLINICAL: 66-year-old male with spinal stenosis of cervical region TECHNIQUE: AP, lateral, COMPARISON: None RESULTS: Counting reference: Craniocervical junction.. The neck is bent in a significant flexed position with reversal normal cervical lordosis centered at C5. Disc space narrowing at C3/C4 and moderate to marked disc space narrowing at C4/C5 through C6/C7. C7 vertebral bodies not completely visualized throughout. Osteophytes anteriorly at C4-C7 and uncovertebral osteophytes at C5-C7. Approximately 2 mm anterior subluxation C3 in relation to C3 and 2.5 mm anterior subluxation C3 in relation C4. Facet degenerative changes throughout the lumbar spine. C IMPRESSION: FLEXION DEFORMITY OF THE CERVICAL SPINE WITH REVERSAL NORMAL CERVICAL LORDOSIS. DEGENERATIVE DISC AND FACET DISEASE. MILD ANTERIOR SUBLUXATIONS AT C3 AND C3. Clinical Account Executive: [facility] Transcribe Date/Time: May 06 2022 4:46P Dictated by : BRIANDA FERNÁNDEZ MD This examination was interpreted and the report reviewed and electronically signed by: BRIANDA FERNÁNDEZ MD on May 06 2022 4:49PM EST [id number] CN Normal [facility] PSA, TOTALon 07-20-2021 PSA, TOTAL 3.5 ng/mL Normal < OR = 4.0 [facility] Comment on above: Result Comment: The total PSA value from this assay system is standardized against the WHO standard. The test result will be approximately 20% lower when compared to the equimolar-standardized total PSA (Guy Linden). Comparison of serial PSA results should be interpreted with this fact in mind. This test was performed using the Siemens chemiluminescent method. Values obtained from different assay methods cannot be used interchangeably. PSA levels, regardless of value, should not be interpreted as absolute evidence of the presence or absence of disease. Performed By: #### 5 [id number] #### [facility] [address], [address] [place] [address] Conservation Science Teacher: Delfino Pollard MD Vital Signs Date Time Vital Sign Value Performing Clinician Neyda crews 05-03-2022 09:50-0400 Body height 177.8 cm Ning Shanks DRAWING IN HAND.BARTENDER SERVER Work Phone: [facility] 05-03-2022 09:50-0400 Body weight 92.6 kg Ning Shanks DRAWING IN HAND.BARTENDER SERVER Work Phone: [facility] 05-03-2022 09:50-0400 Diastolic blood pressure 82 mm[Hg] Ning Shanks DRAWING IN HAND.BARTENDER SERVER Work Phone: [facility] 05-03-2022 09:50-0400 Heart rate 84 /min Ning Shanks DRAWING IN HAND.BARTENDER SERVER Work Phone: [facility] 05-03-2022 09:50-0400 SaO2% (BldA) [Mass fraction] 99 % Ning Shanks DRAWING IN HAND.BARTENDER SERVER Work Phone: [facility] 05-03-2022 09:50-0400 Systolic blood pressure 142 mm[Hg] Ning Shanks DRAWING IN HAND.BARTENDER SERVER Work Phone: [facility] Encounters Encounter Date Encounter Type Care Provider Facility Start: 08-31-2024 Encounter for genera l adult medical examination without abnormal findings JASPER AVINA [facility] Start: 08-31-2024 End: 08-31-2024 ambulatory JASPER AVINA [facility] Start: 05-19-2024 End: 05-19-2024 Emergency department patient visit LOUIS IRENE [facility] Start: 02-16-2024 End: 02-16-2024 ambulatory JASPER AVINA [facility] Start: 02-16-2024 End: 02-16-2024 Encounter for general adult medical examination without abnormal findings JASPER AVINA [facility] Start: 02-09-2024 ambulatory JASPER AVINA [facility] Start: 06-19-2023 End: 06-19-2023 Subsequent hospital visit by physician Sally Diaz MD Work Phone: [facility] Comment on above: Arrived Start: 05-26-2023 ambulatory SALLY DIAZ Facility:[facility] Start: 05-26-2023 End: 05-26-2023 Subsequent hospital visit by physician Sally Diaz MD Work Phone: [facility] [place] Comment on above: Arrived Start: 04-23-2023 ambulatory SALLY DIAZ Facility:[facility] Start: 06-13-2022 Telephone encounter Gilbert lopez MD Work Phone: [facility] 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 Start: 06-07-2022 Telephone encounter Gilbert lopez MD Work Phone: [facility] Comment on above: Appointment Start: 05-31-2022 Telephone encounter Gilbert lopez MD Work Phone: [facility] Comment on above: Future Appointment Start: 05-29-2022 End: 05-29-2022 Subsequent hospital visit by physician Senthil Ortega Developmental Electronics Assembler [facility] [place] [facility] Comment on above: Spinal stenosis of c ervical region [M48.02] Start: 05-03-2022 End: 05-03-2022 FQHC visit new patient Ning Shanks APRN.BARTENDER SERVER Work Phone: [facility] Comment on above: New Patient Evaluati on Start: 05-03-2022 End: 05-03-2022 Patient encounter procedure Ning Shanks APRN.BARTENDER SERVER Work Phone: [facility] Procedures Date Procedure Procedure Detail Performing Clinician Start: 02-16-2024 Urinalysis JASPERAGUSTIN HOFFMAN Comment on above: Result Comment: URIN ALYSIS Performed By: #### [id number] #### [facility],[address] [place], [place] [id number] Start: 05-26-2023 End: 05-26-2023 Radex spine cervical 4 or 5 views Sally Diaz MD Work Phone: Start: 05-29-2022 Mri spinal canal cer vical w/o contrast matrl Ning Shansk DRAWING IN HAND.BARTENDER SERVER Work Phone: Start: 05-03-2022 Radex spine cervical 2 or 3 views Ning Shanks DRAWING IN HAND.BARTENDER SERVER Work Phone: Plan of Treatment Date Care Activity Detail Author Start: 08-01-2023 Influenza vaccination [place] Start: 06-30-2023 End: 06-30-2023 Patient encounter procedure 06/30/2023 10:00 AM EDT Office Visit [facility] [address] [place] [address] Rd 5[address] Floor, [address] [place] [address] Sally Diaz MD [address] [place] [address] [facility] Start: 05-27-2023 End: 05-27-2023 Patient encounter procedure [facility] Start: 08-01-2022 Influenza vaccination [facility] Start: 12-01-2021 ADVANCE DIRECTIVE DISCUSSION ADVANCE DIRECTIVE DISCUSSION [facility] Start: 06-19-2021 COVID-19 VACCINE (2 - Booster for Kimberlee series) COVID-19 VACCINE (2 - Booster for Kimberlee series) [facility] Start: 2019 Abdominal aortic aneurysm screening ABDOMINAL AORTIC ANEURYSM HIGH RISK SCREEN [facility] Start: 2009 PROSTATE CANCER SCREENING DISCUSSION PROSTATE CANCER SCREENING DISCUSSION [facility] Start: 2004 Prostate specific antigen measurement PROSTATE CANCER SCREENING DISCUSSION [facility] Start: 2004 SHINGRIX VACCINE (1 of 2) SHINGRIX VACCINE (1 of 2) [facility] Start: 2004 Zoster vaccine hzv l larry for subcutaneous use ZOSTER (SHINGLES) VACCINE (1 of 2) [facility] Start: 1999 COLOGUARD (FIT-DNA) COLOGUARD (FIT-D NA) [facility] Start: 1999 Colonoscopy COLONOSCOPY [facility] Start: 1999 COLORECTAL CANCER SCREENING COLORECTAL CANCER SCREENING [facility] Start: [address] COLONOGRAPHY [facility] Start: 1999 DIABETES SCREEN DIABETES SCREEN [facility] Start: 1999 FECAL OCCULT BLOOD FECAL OCCULT BLOO D [facility] Start: 1999 Screening for malign ant neoplasm of colon COLORECTAL CANCER SCREENING DISCUSSION [facility] Start: 1999 SIGMOIDOSCOPY SIGMOIDOSCOPY [facility] Start: 1994 Lipid panel LIPID SCREENING [facility] Start: 1989 LIPID SCREEN LIPID SCREEN [facility] Start: 1973 Third diphtheria, tetanus and acellular pertussis (DTaP) vaccination TDAP (ADULT) [facility] Start: 1973 Urine microalbumin profile DTAP,TDAP,TD (1 - Tdap) [facility] Start: 1972 HEPATITIS C SCREENING HEPATITIS C SC REENING [facility] Start: 1966 Adult depression screening assessment DEPRESSION SCREENING [facility] Start: 1960 Pneumococcal vaccination PNEUMOCOCCAL VACCINE SERIES (1 - PCV) [facility] Start: 1960 PNEUMOCOCCAL: 65+ (1 - PCV) PNEUMOCOCCAL: 65+ (1 - PCV) [facility] Start: 1954 ABDOMINAL AORTIC ANEURYSM SCREENING ABDOMINAL AORTIC ANEURYSM SCREENING [facility] Start: 1954 Hepatitis C screening HEPATITI S C VIRUS SCREENING [facility] Start: 1954 Tetanus vaccination TETANUS [facility] End: 06-19-2023 CT Cervical spine WO contrast [facility] Work Phone: Comment on above: 1 Occurrences starti ng 06/19/2023 until 06/19/2023 End: 06-02-2023 Mri spinal canal cervical w/o contrast matrl MRI CERVICAL SPINE WO IVCON Radiology Routine Spinal stenosis of cervical region 1 Occurrences starting 05/03/2022 until 06/02/2023 [facility] Work Phone: Comment on above: 1 Occurrences starti ng 05/03/2022 until 06/02/2023 Mri spinal canal cervical w/o contrast matrl MRI CERVICAL SPINE WO IVCON Radiology Routine Spinal stenosis of cervical region 05/29/2022 11:55 AM EDT [facility] Work Phone: Radex spine cervical 2 or 3 views XR CERV GENERAL 2V AP/LAT Radiology Routine Spinal stenosis of cervical region 05/03/2022 10:32 AM EDT [facility] Work Phone: [facility] Immunizations Immunization Date Immunization Notes Care Provider Fa [facility] 04-24-2021 COVID-19 vaccine (KIMBERLEE) Ning Shanks DRAWING IN HAND.BARTENDER SERVER Work Phone: [facility] 09-30-2014 influenza, seasonal, injectable Ning Shanks DRAWING IN HAND.BARTENDER SERVER Work Phone: [facility] 09-30-2014 influenza virus vaccine, unspecified formulation Sally Diaz MD Work Phone: [facility] Payers Date Payer Category Payer Medicare MEDICARE [employer] HMO PPO MEDICARE [employer] HMO PPO [id number] 2023-Present [address] [place] [address] [id number] 2023 Medicare [id number] 2019 Medicare HU[employer]NA MEDICARE [employer] GOLD PLUS [id number] 2019-Present [phone] [address] [address] [place] [address] O [id number] 1954 Unknown [id number] 1954 Unknown [id number] 1954 Unknown [id number] 1954 Unknown [id number] 1954 Unknown [id number] 1954 Unknown [id number] 1954 Unknown [id number] 1954 Unknown [id number] 1954 Unknown [id number] 1955 Unknown [id number] Medicare [id number] Medicare [id number] Social History Date Type Detail Facility Start: 05-03-2022 End: 05-26-2023 Tobacco smoking status NYIS Smokes tobacco daily [facility] History of tobacco use Cigarette Smoker [facility] Start: 05-03-2022 End: 05-26-2023 Tobacco use and exposure Smokeless tobacco non-user [facility] Start: 05-03-2022 End: 05-26-2023 Alcohol intake Current drinker of alcohol (finding) [facility] Start: 05-02-2022 History SDOH Alcohol Comment occasionally [facility] Start: 1955 Sex Assigned At Not on file [facility] Start: 04-23-2022 End: 05-29-2022 Exposure to SARS-CoV-2 (event) Not sure [facility] Start: 05-26-2023 History of Social function [facility] Start: 05-26-2023 Tobacco use panel [facility] Start: 05-26-2023 Alcohol Comment Occ [facility] Clinical Notes 05-03-2022 to 06-13-2022 Telephone Encounter - Jose Luis Walton RN - 06/13/2022 10:53 AM EDTTelephone Encounter - Micheline Kaplanlins - 06/07/2022 2:06 PM EDTTelephone Encounter - Micheline Kaplanlins - 05/31/2022 3:57 PM EDT Note Date & Type Note Facility 06-13-2022 Miscellaneous Notes Called patient to check on the status of his dex scan and labs that were to be obtained prior to up coming apointment. Patient became very aggressive yelling. He stated we have taken enough of his money and he's not coming up here anymore . He stated he has been given the run around and didn't like how he was treated. I apologized and patient stated he wanted to cancel his appointment and everything we ordered at this time and hung up. Jose Luis Walton RN documented in this encounter [facility] 06-07-2022 Miscellaneous Notes Patient called in today, upon answering patient was very upset (yelling most of the call) as to why no one has called him about scheduling his DEXA scan and blood work for asaf. I let the patient know that I have tried to reach out to him on a couple of occasions to let him know his dates and times since he does not have MyChart. I told him that the number we had on file I left a couple of voicemails on but I didn't believe that it was his number since the voice mail says Cara. He asked what number we have and I told him [phone]. He got really upset and yelled NO NO NO THAT'S NOT IT, ITS [phone]. I said thank you and I will change it in our system And I will call and get those appts that he missed rescheduled, he said is someone going to call me this time. I said I sure will and he continued to yell and get more and more upset saying that nobody ever calls him back, I told him that I tried but he did not leave a call back number in any of his voice mails that he has left. He yelled and said well you have it now. I asked him to stop yelling at me and that I was only trying to help him, he then yelled about getting the run around for 9 months, I said that I am sorry but I havent been here that long and I am only trying to help him but I need you to please stop yelling at me, and he said either you are going to do the surgery or you arent, im not driving all over from one surgeon to another, I told him if he doesn't want to go to the appointments then he can cancel them and he yelled that he would and maybe he would just have accupuncture instead and hung up on me. documented in this encounter [facility] 05-31-2022 Miscellaneous Notes Called patient on 05/30/22 at [phone], the number that is on his profile to let him know that I got his DXA scan scheduled and that he can have his vitamin D checked at the lab in [place] which is closer to his home. I left a message yesterday on the voice mail of an Cara (whos number this appears to be) did not disclose patients name other than just first name and letting him know the date and time of his appt just in case it was not the right number. Patient called and left a voicemail for me that he was still waiting on a call from us to let him know when his appt was scheduled for but did not leave a contact number on the message so again I called the same number and left a message saying that if this is not the correct number for Reagan to please let me know and left my number and ext. On the vm. documented in this encounter [facility] 05-29-2022 Note HNO ID: [id number] Author: Gilbert Cook MD Service: ? Author Type: Physician Type: Progress Notes Filed: 05/29/2022 2:49 PM Note Text: Gilbert Cook M.D. ORTHOPEDIC SPINE CONSULT NOTE Date of visit: May 29, 2022 Patient Name: Mr.Rick Dixie Ray Date of : 1955 Current Age: [age] year old Sex: male PCP: No primary care provider on file. Chief Complaint:Patient presents with: New Patient HPI Mr.Rick Dixie Ray was seen by Ning Shanks APRN. CNP on 05/03/2022 with complaints of neck pain that radiated to ulnar aspect of bilateral upper extremities. He had participated in multiple modalities of conservative treatment including physical therapy and pain management in [place], no significant symptom relief. He was asked to obtain Xray and MRI of cervical spine then follow-up afterwards, prompting his visit today. Today he reports his symptoms are unchanged since he saw Ning. He notes cervical pain that is worse on the left. He notes his pain radiates down his arms bilaterally through the ulnar aspect. He notes numbness, tingling, weakness and dropping items. He has failed all conservative treatment thus far. +smoker Pain: neck pain Duration of Symptoms: 9 months, without known incident Radiation: ulnar aspect of bilateral upper extremities Numbness / tingling: Present in bilateral hands, all 10 fingers Weakness:??Denies Dexterity:? Endorses-ongoing for 9 months Imbalance:? Endorses-ongoing for 9 months Bowel/bladder dysfunction: ?Denies PREVIOUS CONSERVATIVE TREATMENT: 1) Medication: Tylenol and NSAIDs, Prednisone, [place], Flexeril 2) Physical therapy: Participated multiple times in the past, no symptom relief. 3) Pain Management: [place] [facility] management- Dr. Sena 4) Injections: Per patient has had multiple injections with pain management, unable to indicate location of injections. 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) Spinal Stenosis of Cervical Region PAST MEDICAL HISTORY Diagnosis Date - COPD (chronic obstructive pulmonary disease) (HCC) - Emphysema/COPD (HCC) - Hernia - Hypertension - Sleep apnea PAST SURGICAL HISTORY Procedure Laterality Date - HAND SURGERY HX Right 12/28/2010 CTR - [email or web address] - LEG SURGERY HX Right 08/2012 Tibia/Fibula ORIF - [facility] @ [place] FAMILY HISTORY Problem Relation Age of Onset - Arthritis Mother - Diabetes Mother - Cancer Father - Hypertension Father - other (anemia) Brother - Heart disease Brother Social History Tobacco Use - Smoking status: Current Every Day Smoker Types: Cigarettes - Smokeless tobacco: Never Used Substance Use Topics - Alcohol use: Yes Comment: occasionally - Drug use: Never ALLERGIES Allergen Reactions - Tramadol Mental Status Change hallucinations MEDICATIONS: cyclobenzaprine (FLEXERIL) 10 mg tablet TAKE ONE TABLET EVERY TWELVE HOURS NEEDED lisinopril (ZESTRIL, PRINIVIL) 20 mg tablet Take 20 mg by mouth once daily. predniSONE (DELTASONE) 50 mg Take 1 tablet by mouth once daily. LORazepam (ATIVAN) 1 mg tablet TAKE ONE TABLET BY MOUTH 30- 60 MINUTES prior TO procedure diazePAM (VALIUM) 5 mg tablet Take 1 tablet 60 minutes prior to MRI, may repeat 1 tablet right before MRI/during if needed. Do not start before May 27, 2022. PROMIS Score Percentiles Percentiles provide an indication of how the patient's score ranks in relation to the general population. Higher percentile rankings indicate better function/quality of life. 50th percentile is the average of the general population and indicates half of respondents had a worse score. REVIEW OF SYSTEMS: Review of Systems Constitutional: Negative for diaphoresis, fatigue and fever. HENT: Negative for congestion, sinus pressure and sore throat. Eyes: Negative for discharge and itching. Respiratory: Negative for cough, chest tightness and shortness of breath. Cardiovascular: Negative for chest pain, palpitations and leg swelling. Gastrointestinal: Negative for constipation, diarrhea, nausea and vomiting. Endocrine: Negative for cold intolerance and heat intolerance. Genitourinary: Negative for difficulty urinating, frequency and urgency. Musculoskeletal: Positive for back pain, neck pain and neck stiffness. Negative for gait problem. Skin: Negative for rash and wound. Allergic/Immunologic: Negative for environmental allergies and food allergies. Neurological: Positive for dizziness (more content not included)... [facility] 05-29-2022 Note HNO ID: [id number] Author: BUD Tsang) Service: Radiology Author Type: Technologist Type: Progress Notes Filed: 05/29/2022 11:41 AM Note Text: Radiology Service Progress Note PATIENT NAME: Reagan Ray DATE OF SERVICE: May 29, 2022 TIME: 11:41 AM PATIENT IDENTITY VERIFICATION COMPLETED USING TWO (2) IDENTIFIERS: Name and Date of confirmed by patient verbally. FALL SCREENING: Has the patient had 2 falls in the last year or 1 fall with injury or currently using an Ambulatory Assistive Device (Walker, Cane, Wheelchair, Crutches, etc.)? No PATIENT GENDER DATA: Male PATIENT RELEVANT IMPLANT DATA REVIEWED: Yes RADIOLOGY DEPARTMENT: MR; Exam(s) Completed: Spine: Cervical spine PERIPHERAL IV DATA: Not applicable SIGNED BY: RT Sharan(Jo Ann) May 29, 2022 11:41 AM [facility] 05-29-2022 History of Presen t illness Narrative Radiology Service Progress Note PATIENT NAME: Reagan Ray DATE OF SERVICE: May 29, 2022 TIME: 11:41 AM PATIENT IDENTITY VERIFICATION COMPLETED USING TWO (2) IDENTIFIERS: Name and Date of confirmed by patient verbally. FALL SCREENING: Has the patient had 2 falls in the last year or 1 fall with injury or currently using an Ambulatory Assistive Device (Walker, Cane, Wheelchair, Crutches, etc.)? No PATIENT GENDER DATA: Male PATIENT RELEVANT IMPLANT DATA REVIEWED: Yes RADIOLOGY DEPARTMENT: MR; Exam(s) Completed: Spine: Cervical spine PERIPHERAL IV DATA: Not applicable SIGNED BY: RT Sharan(Jo Ann) May 29, 2022 11:41 AM documented in this encounter [facility] 05-03-2022 Note HNO ID: [id number] Author: Ning Shanks APRN.BARTENDER SERVER Service: ? Author Type: Nurse Practitioner Type: Progress Notes Filed: 05/03/2022 11:00 AM Note Text: NEUROSURGERY CONSULT NOTE Ning Shanks APRN-ASHIA Date of visit: May 03, 2022 Patient Name: Mr.Rick Dixie Ray Date of : 1955 Current Age: [age] year old Sex: male MRN/E# [id number] Last Office Visit: Visit date not found Chief Complaint: Patient presents with: New Patient Evaluation HPI Mr.Rick Dixie Ray presents to the office today as a new patient without imaging for evaluation of neck pain. He reports onset of neck pain began approximately 9 months ago without known incident. Pain radiates ulnar aspect of bilateral upper extremities. He has been treating symptoms with the help of pain management in [place], no significant relief. He has seen a orthospine specialist in [place], Dr. Dion Sykes, no advanced diagnostic imaging obtained due to difficulty with scheduling. Patients current symptomology below: Pain: neck pain Duration of Symptoms: 9 months, without known incident Radiation: ulnar aspect of bilateral upper extremities Numbness / tingling: Present in bilateral hands, all 10 fingers Weakness: Denies Dexterity: Endorses-ongoing for 9 months Imbalance: Endorses-ongoing for 9 months Bowel/bladder dysfunction: Denies PREVIOUS CONSERVATIVE TREATMENT: 1) Medication: Tylenol and NSAIDs, MR- not helpful 2) Physical therapy: Participated multiple times in the past, no symptom relief. 3) Pain Management: [place] [facility] management- Dr. Sena 4) Injections: Per patient has had multiple injections with pain management, on able to indicate location of injections. Questionable TPI versus STORM PREVIOUS SPINE SURGERY: Denies Surgical Risk Factors: Smoking status: Yes Anticoagulants/antiplatelets: Denies Diabetic: Denies BMI: 29.29 PAIN EVALUATION 05/03/2022 0953 Pain Level: 5 moderate per patient Pain Location: Neck B/L shoulders, B/L hands Description: Aching;Tingling;Numbness;Spasm ;Tightness Duration Amount of Time: 9 Duration Units: Months Frequency: Continuous PAST MEDICAL HISTORY Diagnosis Date - COPD (chronic obstructive pulmonary disease) (HCC) - Emphysema/COPD (HCC) - Hernia - Hypertension - Sleep apnea PAST SURGICAL HISTORY Procedure Laterality Date - HAND SURGERY HX Right 12/28/2010 CTR - [email or web address] - LEG SURGERY HX Right 08/2012 Tibia/Fibula ORIF - Emanuel @ [facility] FAMILY HISTORY Problem Relation Age of Onset - Arthritis Mother - Diabetes Mother - Cancer Father - Hypertension Father - other (anemia) Brother - Heart disease Brother ALLERGIES Allergen Reactions - Tramadol Mental Status Change hallucinations Current Outpatient Medications Medication Sig Dispense Refill - lisinopril (ZESTRIL, PRINIVIL) 20 mg tablet Take 20 mg by mouth once daily. - predniSONE (DELTASONE) 50 mg Take 1 tablet by mouth once daily. 5 tablet 0 - [START ON 05/27/2022] diazePAM (VALIUM) 5 mg tablet Take 1 tablet 60 minutes prior to MRI, may repeat 1 tablet right before MRI/during if needed. Do not start before May 27, 2022. 2 tablet 0 - [START ON 05/27/2022] HYDROcodone-acetaminophen (NORCO) 5-325 mg per tablet Take 1 tablet by mouth one time only for 1 dose. Take 90 minutes prior to MRI. Do not drive while taking medication Do not start before May 27, 2022. 1 tablet 0 No current facility-administered medications for this visit. REVIEW OF SYSTEMS Review of Systems Constitutional: Negative for chills, diaphoresis and fever. HENT: Negative for congestion, ear pain and sinus pressure. Eyes: Negative for discharge and redness. Respiratory: Negative for cough, shortness of breath and wheezing. Cardiovascular: Negative for chest pain, palpitations and leg swelling. Gastrointestinal: Negative for constipation, diarrhea and nausea. Endocrine: Negative for cold intolerance and heat intolerance. Genitourinary: Positive for difficulty urinating (due to prostate). Negative for frequency and urgency. Musculoskeletal: Positive for gait problem, myalgias and neck pain. Negative for back pain. Skin: Negative for rash and wound. Allergic/Immunologic: Negative for environmental allergies and food allergies. Neurological: Positive for numbness. Negative for dizziness, facial asymmetry, weakness and headaches. Hematological: Does not bruise/bleed easily. Psychiatric/Behavioral: Negative for agitation, confusion and decreased concentration. Avoids eye contact OBJECTIVE: BP 142/82 Pulse 84 Ht 5' 10 (1.78m) Wt 204 lb 2.3 oz (92.6kg) SpO2 99% BMI 29.29 kg/(m2). PHYSICAL EXAM: General appearance: Well nourished, well developed, and no apparent distress. Mental State : Alert, memory function unremarkable. Oriented to person, place and time. Pulmonary: Respirations regular and unlabored. Cardiac: Regular rate and rhythm. Skin: Intact, w (more content not included)... [facility] 05-03-2022 History of Presen t illness Narrative Images from the original note were not included. NEUROSURGERY CONSULT NOTE CARMELO Villeda Date of visit: May 03, 2022 Patient Name: Mr.Rick Dixie Ray Date of : 1955 Current Age: [age] year old Sex: male MRN/E# [id number] Last Office Visit: Visit date not found Chief Complaint: Patient presents with: New Patient Evaluation HPI Mr.Rick Dixie Ray presents to the office today as a new patient without imaging for evaluation of neck pain. He reports onset of neck pain began approximately 9 months ago without known incident. Pain radiates ulnar aspect of bilateral upper extremities. He has been treating symptoms with the help of pain management in [place], no significant relief. He has seen a orthospine specialist in [place], Dr. Dion Sykes, no advanced diagnostic imaging obtained due to difficulty with scheduling. Patients current symptomology below: Pain: neck pain Duration of Symptoms: 9 months, without known incident Radiation: ulnar aspect of bilateral upper extremities Numbness / tingling: Present in bilateral hands, all 10 fingers Weakness: Denies Dexterity: Endorses-ongoing for 9 months Imbalance: Endorses-ongoing for 9 months Bowel/bladder dysfunction: Denies PREVIOUS CONSERVATIVE TREATMENT: 1) Medication: Tylenol and NSAIDs, MR- not helpful 2) Physical therapy: Participated multiple times in the past, no symptom relief. 3) Pain Management: [place] [facility]- Dr. Sena 4) Injections: Per patient has had multiple injections with pain management, on able to indicate location of injections. Questionable TPI versus STORM PREVIOUS SPINE SURGERY: Denies Surgical Risk Factors: Smoking status: Yes Anticoagulants/antiplatelets: Denies Diabetic: Denies BMI: 29.29 PAIN EVALUATION 05/03/2022 0953 Pain Level: 5 moderate per patient Pain Location: Neck B/L shoulders, B/L hands Description: Aching;Tingling;Numbness;Spasm ;Tightness Duration Amount of Time: 9 Duration Units: Months Frequency: Continuous PAST MEDICAL HISTORY Diagnosis Date COPD (chronic obstructive pulmonary disease) (HCC) Emphysema/COPD (HCC) Hernia Hypertension Sleep apnea PAST SURGICAL HISTORY Procedure Laterality Date HAND SURGERY HX Right 12/28/2010 [facility] - [email or web address] LEG SURGERY HX Right 08/2012 [facility] @ [facility] FAMILY HISTORY Problem Relation Age of Onset Arthritis Mother Diabetes Mother Cancer Father Hypertension Father other (anemia) Brother Heart disease Brother ALLERGIES Allergen Reactions Tramadol Mental Status Change hallucinations Current Outpatient Medications Medication Sig Dispense Refill lisinopril (ZESTRIL, PRINIVIL) 20 mg tablet Take 20 mg by mouth once daily. predniSONE (DELTASONE) 50 mg Take 1 tablet by mouth once daily. 5 tablet 0 [START ON 05/27/2022] diazePAM (VALIUM) 5 mg tablet Take 1 tablet 60 minutes prior to MRI, may repeat 1 tablet right before MRI/during if needed. Do not start before May 27, 2022. 2 tablet 0 [START ON 05/27/2022] HYDROcodone-acetaminophen (NORCO) 5-325 mg per tablet Take 1 tablet by mouth one time only for 1 dose. Take 90 minutes prior to MRI. Do not drive while taking medication Do not start before May 27, 2022. 1 tablet 0 No current facility-administered medications for this visit. REVIEW OF SYSTEMS Review of Systems Constitutional: Negative for chills, diaphoresis and fever. HENT: Negative for congestion, ear pain and sinus pressure. Eyes: Negative for discharge and redness. Respiratory: Negative for cough, shortness of breath and wheezing. Cardiovascular: Negative for chest pain, palpitations and leg swelling. Gastrointestinal: Negative for constipation, diarrhea and nausea. Endocrine: Negative for cold intolerance and heat intolerance. Genitourinary: Positive for difficulty urinating (due to prostate). Negative for frequency and urgency. Musculoskeletal: Positive for gait problem, myalgias and neck pain. Negative for back pain. Skin: Negative for rash and wound. Allergic/Immunologic: Negative for environmental allergies and food allergies. Neurological: Positive for numbness. Negative for dizziness, facial asymmetry, weakness and headaches. Hematological: Does not bruise/bleed easily. Psychiatric/Behavioral: Negative for agitation, confusion and decreased concentration. Avoids eye contact OBJECTIVE: BP 142/82 Pulse 84 Ht 5' 10 (1.78m) Wt 204 lb 2.3 oz (92.6kg) SpO2 99% BMI 29.29 kg/(m^2). PHYSICAL EXAM: General appearance: Well nourished, well developed, and no apparent distress. Mental State : Alert, memory function unremarkable. Oriented to person, place and time. Pulmonary: Respirations regular and unlabored. Cardiac: Regular rate and rhythm. Skin: Intact, warm, dry. MUSCULOSKELETAL Sensory: Sensation intact to light touch Palpation: SPINOUS PROCESS: No pain. PARASPINALS: Mild pain in bilateral trapezius region Motor: Normal muscle tone and bulk. No tremor or uncontrollable movements. No spasticity or tremor. Gait and Station: Normal gait. No assistive device usage. Gross instability with attempted tandem gait Range of motion: Cervical: Decreased extension range of motion. Tenderness with extension. Lumbar: Normal range of motion, no tenderness. Long tract signs: No clonus. Positive bilateral Hoffmanns. Reflexes: symmetric non-brisk MUSCLE TONE and BULK: Symmetrical in the upper & lower extremities. Upper Extremity Strength Exam Right Left Deltoid 5/5 5/5 Biceps 5/5 5/5 Triceps 5/5 5/5 Wrist Extension 5/5 5/5 Interossei 5/5 5/5 Lower Extremity Strength Exam Right Left Psoas 5/5 5/5 Quadriceps 5/5 5/5 DF 5/5 5/5 EHL 5/5 5/5 PF 5/5 5/5 Data Review IMAGING STUDIES: No imaging on file. Assessment & Plan: Presents to the office today with reports of cervical myopathy with radiculopathy. He has treated his symptoms with multiple modalities of conservative treatment including physical therapy in the past, no symptom relief. He is also currently participating in pain management and reports treatment with injections. Unclear if TPI versus STORM. We will attempt to gain office notes from his pain management physician in [place] for better clarification.On exam he has positive bilateral Minnie sign and gross instability with attempted tandem gait. Given these findings and failed conservative treatment I recommended he obtain radiographic imaging of cervical spine as well as MRI imaging of cervical spine. Once imaging obtained he should then follow-up with Dr. Otero for review and further planning. He tells me he is in need of anxiolysis prior to MRI as he has previously attempted and unable to complete due to severe pain/claustrophobia. I have provided him prophylactic medication and thoroughly instructed him not to drive while taking the medication, he verbalized understanding. Lastly we had a detailed conversation about smoking cessation, patient is not willing to do so at this time. Ning Shanks APRN-BARTENDER SERVER Neurosurgery Nurse Practitioner [facility] This note was partially generated using [employer] voice recognition system, and there may be some incorrect words, spellings, and punctuation that were not noted in checking the note before saving. 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)- Primary Spinal stenosis of cervical region Spinal stenosis in cervical region Claustrophobia Other isolated or specific phobias documented [facility] Diagnosis Spinal stenosis of cervical region Spinal stenosis in cervical region [facility] Diagnosis Cervical spondylolysis Other congenital anomaly of spine [facility] Diagnosis Kyphosis of cervical region, unspecified kyphosis type [facility] Diagnostic Procedure Only (Routine) - Closed Specialty Diagnoses / Procedures Referred By Contac t Referred To Contact XR IMAGING Diagnoses Spinal stenosis of cervical region Procedures XR CERV GENERAL 2V AP/LAT RADEX SPINE CERVICAL 2 OR 3 VIEWS Ning Shanks APRN.BARTENDER SERVER [address] [place] [address] Xr Imaging Referral ID Status Reason Start Date Expiration Date V isits Requested Visits Authorized [id number] Closed Auto-Generate d Referral 05/03/2022 06/02/2023 1 1 * MRI/CT (Routine) - Authorized Specialty Diagnoses / Procedures Referred By Contac t Referred To Contact MR IMAGING Diagnoses Spinal stenosis of cervical region Procedures MRI CERVICAL SPINE WO IVCON MRI SPINAL CANAL CERVICAL W/O CONTRAST MATRL Ning Shanks APRN.CNP [address] [facility] [place] [address] Mr Imaging Referral ID Status Reason Start Date Expiration Date Visits Requested Visits Authorized [id number] Authorized Auto-Generat ed Referral 12/01/2021 11/30/2022 1 1 [facility] Summary Purpose Family History No Family History Records FoundNo Family History Records FoundNo Family History Records FoundNo Family History Records Found Advance Directives No Advanced Directives Records FoundNo Advanced Directives Records FoundNo Advanced Directives Records FoundNo Advanced Directives Records Found Reason for Referral Specialty Diagnoses / Procedures Referred By Contac t Referred To Contact MR IMAGING Diagnoses Spinal stenosis of cervical region Procedures MRI CERVICAL SPINE WO IVCON MRI SPINAL CANAL CERVICAL W/O CONTRAST MATRNing Vazquez, LIONEL.BARTENDER SERVER [address] [place] [address] Mr Imaging Referral ID Status Reason Start Date Expiration Date V isits Requested Visits Authorized [id number] Closed Auto-Generate d Referral 12/01/2021 11/30/2022 1 1 Specialty Diagnoses / Procedures Referred By Contac t Referred To Contact Diagnoses Kyphosis of cervical region, unspecified kyphosis type Procedures CT SPINE CERVICAL WITHOUT CONTRAST CA CT SCAN,CERVICAL SPINE,W/O CONTRAST Sally Diaz MD [address] [place] [address] Referral ID Status Reason Start Date Expiration Date Visits Re quested Visits Authorized [id number] Closed 05/26/2023 06/19/2024 1 1 Additional Source Comments (unrecognized sect ion and content) No Status Records FoundNo Status Records FoundNo Status Records FoundNo Status Records Found INFORMATION SOURCE (unrecogn ized section and content) DATE CREATED AUTHOR 09/30/2021 [facility] DATE CREATED AUTHOR AUTHOR'S ORGANIZ ATION 06/20/2022 [facility] DATE CREATED AUTHOR AUTHOR'S ORGANIZ ATION 05/27/2023 [facility] DATE CREATED AUTHOR AUTHOR'S ORGANIZ ATION 09/01/2024 [facility] Source Comments (unrecognize d section and content) In the event this informatio n is protected by the Federal Confidentiality of Alcohol and Drug Abuse Patient Records regulations: The Federal rules restrict any use of the information to criminally investigate or prosecute any alcohol or drug abuse patient.[facility] the event this information is protected by the Federal Confidentiality of Alcohol and Drug Abuse Patient Records regulations: The Federal rules restrict any use of the information to criminally investigate or prosecute any alcohol or drug abuse patient.[facility] the event this information is protected by the Federal Confidentiality of Alcohol and Drug Abuse Patient Records regulations: The Federal rules restrict any use of the information to criminally investigate or prosecute any alcohol or drug abuse patient.[facility] the event this information is protected by the Federal Confidentiality of Alcohol and Drug Abuse Patient Records regulations: The Federal rules restrict any use of the information to criminally investigate or prosecute any alcohol or drug abuse patient.[facility] the event this information is protected by the Federal Confidentiality of Alcohol and Drug Abuse Patient Records regulations: The Federal rules restrict any use of the information to criminally investigate or prosecute any alcohol or drug abuse patient.[facility] Reason for Visit (unrecogniz ed section and content) Reason Comments New Patient Evaluation Specialty Diagnoses / Procedures Referred By Contac t Referred To Contact Neurosurgery / NEUROSURGERY Diagnoses cervical stenosis (X-Ray and CT Cerv.) Procedures OFFICE/OUTPATIENT NEW MODERATE MDM 45-59 MINUTES NEW PATIENT - [facility] Clark Sykes Ruby [address] [place] [address] Ning Shanks, LIONEL.BARTENDER SERVER [address] [place] [address] Referral ID Status Reason Start Date Expiration Date Visits Re quested Visits Authorized [id number] Closed 12/01/2021 11/30/2022 1 1 Specialty Diagnoses / Procedures Referred By Contac t Referred To Contact MR IMAGING Diagnoses Spinal stenosis of cervical region Procedures MRI CERVICAL SPINE WO IVCON MRI SPINAL CANAL CERVICAL W/O CONTRAST MATRL Ning Shanks, LIONEL.BARTENDER SERVER [address] [facility] [place] [address] Mr Imaging Referral ID Status Reason Start Date Expiration Date V isits Requested Visits Authorized [id number] Closed Auto-Generate d Referral 12/01/2021 11/30/2022 1 1 Reason Comments Future Appointment Reason Comments Appointment Reason Comments Dump Operator - Other Specialty Diagnoses / Procedures Referred By Contac t Referred To Contact Diagnoses Kyphosis of cervical region, unspecified kyphosis type Procedures CT SPINE CERVICAL WITHOUT CONTRAST CA CT SCAN,CERVICAL SPINE,W/O CONTRAST Sally Diaz MD [address] [place] [address] Referral ID Status Reason Start Date Expiration Date Visits Re quested Visits Authorized [id number] Closed 05/26/2023 06/19/2024 1 1 Care Teams (unrecognized sec tion and content) Jewel Bearing Driller Relationship Specialty Start Date End Date Jasper Aguilar MD [address] [facility] [address] [facility] [address] [place] [id number] PCP - General Family Medicine 05/26/23 Jewel Bearing Driller Relationship Specialty Start Date End Date Jasper Aguilar MD [address] [facility] [address] [place] [id number] PCP - General Family Medicine 05/26/23 FOR RECORDS PERTAINING TO PATIENTS WHO ARE OR HAVE BEEN ENROLLED IN A CHEMICAL DEPENDENCY/SUBSTANCEABUSE PROGRAM, SOME INFORMATION MAY BE OMITTED. This clinical summary was aggregated from multiple sources. Caution should be exercised in using it in the provision of clinical care. This summary normalizes information from multiple sources, and as a consequence, information in this document may materially change the coding, format and clinical context of patient data. In addition, data may be omitted in some cases. CLINICAL DECISIONS SHOULD BE BASED ON THE PRIMARY CLINICAL RECORDS. [facility] [employer] provides no warranty or guarantee of the accuracy or completeness of information in this document.
--- NOTE | 2024-09-22 05:48 | EKG12_ITS ---
Test Reason : pre-op Blood Pressure : / mmHG Vent. Rate : 097 BPM Atrial Rate : 097 BPM P-R Int : 162 ms QRS Dur : 076 ms QT Int : 326 ms P-R-T Axes : 033 017 035 degrees QTc Int : 414 ms Normal sinus rhythm Normal ECG No previous ECGs available Confirmed by LOGAN AVINA, SEVERINO ([id number]), international editorial producer LUISA KANG ([id number]) on 09/22/2024 2:05:39 PM Referred By: Simeon Blanco Confirmed By:SEVERINO FORD MD
[2024-09-22] MEDS: Lactated Ringers 1,000 ML 15 ML IV (06:00)
[2024-09-22 06:38] LABS: Hematocrit 46.7 % (40-54); Hemoglobin 15.9 g/dL (13.0-16.5); Mean Corpuscular Hgb 30.6 pg (27.0-32.0); Mean Platelet Vol. 9.6 fl (6.2-12.0); Platelet Count 257 K/mm3 (150-450); RBC Distribution Width CV 13.2 % (11.6-14.6); RBC Distribution Width SD 43.5 fl (35.1-43.9); Red Blood Count 5.19 M/mm3 (4.6-6.2); White Blood Count 10.7 K/mm3 (4.4-11.0)
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
[2024-09-22 07:07] LABS: Anion Gap 7 (5-15); BUN 15 mg/dL (7-18); BUN/Creat Ratio 19.3 RATIO (10-20); Calcium,Total 9.4 mg/dL (8.5-10.1); Chloride 101 mmol/L (98-107); Creatinine, Serum 0.78 mg/dL (0.70-1.30); EST Glomerular Filtration Rate 105 mL/min (>60); Est Glom Filt Rate - Afr Amer 127 mL/min (>60); Estimated Creatinine Clearance 105.71 ml/min; Glucose 170 mg/dL (74-106); Potassium 4.3 mmol/L (3.5-5.1); Sodium Level 133 mmol/L (136-145)
[2024-09-22 07:15] LABS: Bedside Glucose 180 mg/dL (74-106)
[2024-09-22] MEDS: Cefazolin 2 GM in Syringe IV (07:26)
--- NOTE | 2024-09-22 07:30 | PROST_PTH ---
PATHOLOGY RESULTS PATIENT: LISE RAY LOC: [facility] [place][id number] AGE/SX: 69/M ROOM: RE09/22/[address]: Dr. Simeon Blanco MD : 1955 BED: DIS: 09/22/2024 SPEC #: [id number] RECD: 09/22/24 10:18 STATUS: JACINTO ALONZO #: [id number] MONY: 09/22/24 07:[address]: Simeon Blanco DEPT: SURGICAL PATHOLOGY RECD BY: Caio Ly ENTERED: 09/22/24 11:56 SP TYPE: PROSTATE OTHR DR: Dr. Jacinda Aguilar MD Tissues: Prostate, NOS Procedures: Surgery Specimen Level V HEADER OPERATION: Laparoscopic robotic simple prostatectomy PRE-OP DIAGNOSIS: Benign prostatic hyperplasia with lower urinary tract symptoms, other retention of urine TISSUE SUBMITTED: Prostate MICROSCOPIC DIAGNOSIS Prostate, transurethral resection: Benign nodular hyperplasia, primarily stromal type. Urothelium with mild chronic inflammation. AM. 09/23/2024 MICROSCOPIC DESCRIPTION Slides are reviewed. GROSS DESCRIPTION Received in fixative is one container labeled with the patient's name and designated prostate. The specimen consists of an irregular piece of pink soft tissue measuring 3.5 x 1.5 x 1.0cm and weighing 2.4gm. Sections do not reveal any mass lesions. The entire specimen is submitted in four cassettes. 09/22/2024 TC:3 CPT:84836
--- NOTE | 2024-09-22 07:30 | PROST_PTH ---
PATHOLOGY RESULTS PATIENT: LISE RAY LOC: [facility] – [place] U#:[id number] AGE/SX: 69/M ROOM: RE09/22/[address]: Dr. Simeon Blanco MD : 1955 BED: DIS: 09/22/2024 SPEC #: [id number] RECD: 09/22/24 10:18 STATUS: JACINTO ALONZO #: [id number] MONY: 09/22/24 07:[address]: Simeon Blanco DEPT: SURGICAL PATHOLOGY RECD BY: Caio Ly ENTERED: 09/22/24 11:56 SP TYPE: PROSTATE OTHR DR: Dr. Jacinda Aguilar MD Tissues: Prostate, NOS Procedures: Surgery Specimen Level V HEADER OPERATION: Laparoscopic robotic simple prostatectomy PRE-OP DIAGNOSIS: Benign prostatic hyperplasia with lower urinary tract symptoms, other retention of urine TISSUE SUBMITTED: Prostate MICROSCOPIC DIAGNOSIS Prostate, transurethral resection: Bening nodular hyperplasia, primarily stromal type. Urothelial with mild chronic inflammation. AM. 09/23/2024 MICROSCOPIC DESCRIPTION Slides are reviewed. GROSS DESCRIPTION Received in fixative is one container labeled with the patient's name and designated prostate. The specimen consists of an irregular piece of pink soft tissue measuring 3.5 x 1.5 x 1.0cm and weighing 2.4gm. Sections do not reveal any mass lesions. The entire specimen is submitted in four cassettes. 09/22/2024 TC:3 CPT:54577
[2024-09-22] MEDS: Bupivacaine Mpf 0.5% 30 ML VIAL (07:59)
[2024-09-22] MEDS: Lubricating Jelly 60 GM Tube 30 GM (08:41)
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
--- NOTE | 2024-09-22 09:43 | DCINST_ITS ---
Discharge Instructions Diet Discharge Diet: No restrictions, Light diet - advance as tolerated and Soft diet Activity Discharge Activity: Return to Normal Activity Additional Activity Instructions:: No heavy lifting Dressing / Incision Cleanse incision/area with: Soap & Water Catheter: Rainey to leg bag and Rainey to large bag Drain: [place] Follow Up Care Please Follow Up With: Simeon Blanco MD When: Call for an appointment in 2 weeks to remove the catheter Test Results: Test results from this visit will be discussed in further detail at your follow- up appointment, if applicable. Discharge Plan Admission Primary Reason for Your Visit: Simple prostatectomy Attending Provider: Simeon Blanco Primary Care Provider: Jacinda Aguilar Instructions Print Language: Hungarian Discharge Orders/Prescriptions Prescriptions: New ciprofloxacin HCl [Cipro] 500 mg tablet 500 mg PO BID Qty: 20 0RF oxycodone 5 mg tablet 5 mg PO Q6H PRN (Reason: pain) 3 Days Qty: 14 0RF Continued lisinopril 20 mg tablet 20 mg PO DAILY albuterol sulfate 90 mcg/actuation HFA aerosol inhaler 2 puff INHALATION Q6H PRN PRN (Reason: shortness of breath or wheezing) ipratropium-albuterol 0.5 mg-3 mg(2.5 mg base)/3 mL solution for nebulization 3 ml inhalation Q6H PRN PRN (Reason: shortness of breath or wheezing) glipizide 5 mg tablet 5 mg PO BID Januvia 100 mg tablet 100 mg PO DAILY Referrals / Follow Up: Simeon Blanco MD [Med Staff - Active Staff] - Jacinda Aguilar MD [Primary Care Provider] - Disposition Disposition (needs filled in before D/C Order can be placed): Home, Self Care
--- NOTE | 2024-09-22 09:44 | OP.PCM_ITS ---
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 He understands that organ to do enucleation of the obstructing adenoma and then after his surgery he will need a catheter to allow this to heal. He understands is no guarantees that after the surgery he will be able to urinate spontaneously and may need to learn how to do self intermittent catheterization. We also talked about the risk of surgery which involves risk of bleeding and infection scar tissue formation bladder neck contracture. Patient was taken back to the operating room at this induction of anesthesia he underwent and intubation and was placed supine on the table. The abdomen was shaved prepped and draped in usual sterile fashion. A Rainey catheter was placed into the penis. I then infiltrated the skin above the umbilicus with lidocaine and made a small 5 mm incision in the skin. I then advanced a Veress needle into the peritoneal cavity and inflated the peritoneal cavity with CO2 gas. Once the pressure was at 15 mm and a nice distention of the abdomen then the camera trocar was put into the abdomen. We then looked in with the 0 degree lens and we placed a right arm trocar and left arm trocar and then an air seal suction port high up in the abdomen to allow the computer assistant to use this for suction. The robot was then docked and then we proceeded with the dissection. The colon was mobilized from the flexure of the colon on the patient's left side once this was freed up then the bladder was distended with 300 cc of sterile normal saline. I then made an incision in the bladder in the midline once we got inside the bladder that drained out all the saline we then used 2 Castillo needles to retract the bladder laterally. Once the bladder was retracted in a clamshell fashion laterally then we got inside the bladder inspected the bladder deflated the balloon left the catheter in place. We then started with scoring the mucosa circumferentially all the way around very large protruding adenomatous prostate. I then dissected between the adenoma and the bladder inferiorly working my way in the avascular enucleation plane between the adenoma and the prostate capsule, pseudocapsule all the way inferiorly I then started working my way laterally up on the right side of the prostate until I got to the anterior part freeing up the adenomatous tissue from the prostate and the anterior tissue and cutting through the bladder muscle and mucosa. We then worked our way laterally on the left side of the adenomatous tissue freeing up the adenoma from the prostate and the bladder muscle and mucosa I then came on top of the adenoma and was able to retract the adenoma out and then split the adenoma in half and identified the catheter and then identified the urethral strip the urethral strip was then carefully transected and then the right adenomatous tissue was removed and then the left adenomatous tissue was removed all intact and all this was placed in Endo Catch bag. Then we cauterized the prostate fossa extensively to control hemostasis Floseal was placed in the prostatic fossa. I then used a 3 oh V-Loc stitch to bring down the mucosa and advance it down towards the urethra circumferentially to advance the mucosa down to the urethral stump. We then placed a Rainey catheter, 20 Citizen [place] into the bladder with no continuous irrigation. Irrigate out the bladder irrigate all the clots out we then closed the bladder with 2 layers using 2 oh V-Loc stitch and then a 4-0 Vicryl stitch. Both the Castillo needles were removed that were retracting the bladder. We then undocked the robot we extracted the prostate adenoma through the umbilicus port we closed the air seal port with 1012 stitch and then we closed all the other ports with subcuticular stitches once the prostate was extracted to the camera port and we reapproximated the fascia and the camera port with a 0 Vicryl [id number] fashion stitch. Minimal blood loss during the case catheter was irrigated and draining well patient anesthetic was reversed and he was taken back to the PACU in good condition. The role of the lube technician BRANDAN, assisted with myself during the entire procedure, the CARE ASST assisted by passing instruments through the air seal port, passing suture, needles, sponges during the surgery. The RFA also assisted with providing some suction using the suction irrigation and some irrigation during the surgery. Also the computer assistant provided some traction minorly during the dissection of the prostate and the seminal vesicles. The RFA also helped me extract the prostate at the end of the case and helped close the fascia, and the computer assistant also helped close the skin incisions with subcuticular stitches. The computer assistant was monitored closely and under my direct supervision the entire case. Surgical Findings: Obstructive small prostate was removed Physical Therapy Teacher sex therapist: Yes Camp Dining Room Attendant: Sameer Phelps Tasks completed by plumber's assistant: Opening & closing and Retracting Complications Complications: No Admit VTE Documentation VTE Present on Admission: No VTE Mechan Device Prophylaxis: SCD's VTE Pharm Prophylaxis ordered?: No
--- NOTE | 2024-09-22 10:00 | PCM.POST.ANE ---
Anesthesia: Postop Eval I Current Vital Signs Temperature: 98.1 F Pulse Rate: 82 Blood Pressure: 122/76 Respiratory Rate: 20 Pulse Ox: 97 Oxygen Delivery Method: Nasal Cannula Oxygen Flow Rate (L/min): 3 Assessment Airway patent: Yes Spontaneous unlabored respirations: Yes Mental status: Awake and Uncooperative nausea: No Vomiting: No Anesthesia Complication: No Fluid Hydration Crystalloid volume administer (ml): 900 Total IV fluid infused: 900 Progress Note Anesthesia document: Postop Eval 1 completed: Yes
--- NOTE | 2024-09-22 10:18 | SUR.PHASEI ---
AT 1000, PATIENT C/O NEED TO VOID. ZHANG IRRIGATED EASILY WITH 50CC STERIL NS. ABLE TO PULL 50 CC OF RED URINE WITHOUT CLOTS FROM BLADDER.
[2024-09-22 11:29] LABS: Bedside Glucose 221 mg/dL (74-106)
[2024-09-22] MEDS: Ciprofloxacin 500 MG Tablet PO (13:28)
[2024-09-22] MEDS: Ketorolac 15 MG/ML Vial IV (13:28)
--- NOTE | 2024-09-22 13:54 | POSTOPAN2_ITS ---
Anesthesia Postop Eval I Sum Postop Eval Completion status Anesthesia document: Postop Eval 1 completed: Yes Anesthesia Postop Eval I Summary Anesthesia Postop Eval I Summary: Anesthesia Postop Eval I: Assessment Summary Airway patent Yes 09/22/24 10:09 [email or web address] [email or web address] Spontaneous unlabored Yes 09/22/24 10:09 TAR [email or web address] respirations Mental status Awake, 09/22/24 10:09 TAR [email or web address] Uncooperative nausea No 09/22/24 10:09 TAR MAN.[email or web address] Vomiting No 09/22/24 10:09 TAR [email or web address] Anesthesia Postop Eval I: Fluid Summary Crystalloid volume administer 900 09/22/24 10:09 TAR [email or web address] (ml) Colloids volume administered ( ml) Blood Product volume administered (ml) Total IV fluid infused 900 09/22/24 10:09 TAR [email or web address] Anesthesia Postop Eval I: Summary Notes Anesthesia Complication No 09/22/24 10:09 TAR [email or web address] Anesthesia Complication Comment: Post-operative progress note Anesthesia: Postop Eval II Evaluation Mental status: Awake and Calm Pain Level: 0 nausea: No Vomiting: No Progress Note Post-operative progress note: Patient's agitation is much improved by the time of discharge from PACU. Complications Anesthesia Complication: No
--- NOTE | 2024-09-22 13:54 | PCM.POSTANE2 ---
Anesthesia Postop Eval I Sum Postop Eval Completion status Anesthesia document: Postop Eval 1 completed: Yes Anesthesia Postop Eval I Summary Anesthesia Postop Eval I Summary: Anesthesia Postop Eval I: Assessment Summary Airway patent Yes 09/22/24 10:09 QUALITATIVE FIELD PROJECT MANAGER.[email or web address] Spontaneous unlabored Yes 09/22/24 10:09 QUALITATIVE FIELD PROJECT MANAGER.[email or web address] respirations Mental status Awake, 09/22/24 10:09 QUALITATIVE FIELD PROJECT MANAGER.[email or web address] Uncooperative nausea No 09/22/24 10:09 QUALITATIVE FIELD PROJECT MANAGER.[email or web address] Vomiting No 09/22/24 10:09 QUALITATIVE FIELD PROJECT MANAGER.[email or web address] Anesthesia Postop Eval I: Fluid Summary Crystalloid volume administer 900 09/22/24 10:09 QUALITATIVE FIELD PROJECT MANAGER.GDOTT (ml) Colloids volume administered ( ml) Blood Product volume administered (ml) Total IV fluid infused 900 09/22/24 10:09 QUALITATIVE FIELD PROJECT MANAGER.GDOTT Anesthesia Postop Eval I: Summary Notes Anesthesia Complication No 09/22/24 10:09 QUALITATIVE FIELD PROJECT MANAGER.GDOTT Anesthesia Complication Comment: Post-operative progress note Anesthesia: Postop Eval II Evaluation Mental status: Awake and Calm Pain Level: 0 nausea: No Vomiting: No Progress Note Post-operative progress note: Patient's agitation is much improved by the time of discharge from PACU. Complications Anesthesia Complication: No
--- NOTE | 2024-09-22 15:25 | PN.URO_ITS ---
Subjective Subjective Urine is a slight reddish color but draining well he denies any pain patient desires to go home tonight I think you be okay to go home. And follow-up next week to have the catheter removed Objective Data Objective Data Vital Signs: Vital Signs Temp Pulse Resp BP Pulse Ox O2 Del Method O2 Flow Rate 98.2 F 91 20 H 137/80 H 93 Nasal Cannula 2 09/22/24 12:34 09/22/24 12:34 09/22/24 12:34 09/22/24 12:34 09/22/24 13:35 09/22/24 13:35 09/22/24 13:35 Oxygen Flow Rate (L/min) 2 Oxygen Delivery Method Nasal Cannula Weight: 109.158 kg Body Mass Index (BMI) 34.5 Intake & Output: Intake and Output for Last 24 Hours 09/20/24 09/21/24 09/22/24 23:59 23:59 23:59 Intake Total 1020 / 1020 Output Total 875 / 875 Balance 145 / 145 Lab / Micro Data 09/22/24 06:24 09/22/24 06:24 Labs: Laboratory Results - last 24 hr 09/22/24 06:19: POC Glucose 180 H 09/22/24 06:24: WBC 10.7, RBC 5.19, Hgb 15.9, Hct 46.7, MCV 90.0, MCH 30.6, MCHC 34.0, RDW Std Deviation 43.5, RDW Coeff of Sandi 13.2, Plt Count 257, MPV 9.6, S odium 133 L, Potassium 4.3, Chloride 101, Carbon Dioxide 25.0, Anion Gap 7, BUN 15, Creatinine 0.78, Estim Creat Clear Calc 105.71, Est GFR (MDRD) Af Amer 127, Est GFR (MDRD) Non-Af 105, BUN/Creatinine Ratio 19.3, Glucose 170 H, Hemoglobin A1c 8.0 H, Calcium 9.4 09/22/24 10:55: POC Glucose 221 H
== END 2024-09-22 16:08 | disposition home or self-care (01) ==
LOC: SDC 05:37 → AC 05:37 → MS3 10:59
PROVIDERS: Anesthesiology; PCP Student in an Organized Health Care Education/Training Program; Referring Provider Urology; Visit Provider Urology
PROC: 0VT04ZZ Resection of Prostate, Percutaneous Endoscopic Approach (ICD-10-PCS; CPT 55867; principal; 2024-09-22 07:10)
DX: N40.3 Nodular prostate with lower urinary tract symptoms (principal); J44.9 Chronic obstructive pulmonary disease, unspecified; R33.8 Other retention of urine; F17.210 Nicotine dependence, cigarettes, uncomplicated; K21.9 Gastro-esophageal reflux disease without esophagitis; Z79.899 Other long term (current) drug therapy; N41.9 Inflammatory disease of prostate, unspecified; Z79.84 Long term (current) use of oral hypoglycemic drugs; R73.03 Prediabetes; I10 Essential (primary) hypertension
CPT/HCPCS: 55867; 00840; 80048; 82962; 83036; 85027; 88307; 93005; 94668; 99252; 99406; J7120; A4216; G0463; J2405; J3490